=== PATIENT | female | born 1990 | race Caucasian/White ===

== ENCOUNTER 2016-05-17 13:49 | Emergency (ER) | payer MEDICAID ==
[2016-05-17] MEDS ORDERED: ACETAMINOPHEN 325 MG TABLET PO ONE (15:30)
--- NOTE | 2016-05-17 15:30 | ER Document Report ---
ED Medical Screen (RME) - General Chief Complaint: Cough Stated Complaint: ABDOMINAL PAIN Mode of Arrival: Ambulatory Information source: Patient Notes: Patient is complaining of left flank pain described as sharp worse with movement , standing, sitting, cough, sneeze or deep inspiration. This pain started yesterday. She endorses headache, dizziness, cough and nasal congestion that started 4 days ago. She is 33 weeks . Endorses normal movement, paul-farooq contractions, no loss of fluids or vaginal bleeding. She has tried tylenol which has not provided any relief. TRAVEL OUTSIDE OF THE [place] IN LAST 30 DAYS: No - Related Data Allergies/Adverse Reactions: No Known Allergies Allergy (Verified 05/17/16 14:08) Past Medical History - Past Medical History Cardiac Medical History: Reports: Hx Hypertension - during (last month of ) - Immunizations Hx Diphtheria, Pertussis, Tetanus Vaccination: No Review of Systems - Review of Systems Constitutional: See HPI EENT: See HPI Female Genitourinary: See HPI Physical Exam - Vital signs Vitals: Temp Pulse Resp BP Pulse Ox 97.8 F 107 H 18 126/79 H 97 05/17/16 14:05/17/16 14:05/17/16 14:05/17/16 14:05/17/16 14:09 - Notes Notes: General: ill-appearing but non-toxic. Tachycardic at 111 but otherwise VSS. Course - Re-evaluation Re-evalutation: 05/17/16 15:29 Patient seen and examined. Ordered urinalysis and rapid flu. - Vital Signs Vital signs: Temp Pulse Resp BP Pulse Ox 97.8 F 107 H 18 126/79 H 97 05/17/16 14:05/17/16 14:05/17/16 14:05/17/16 14:05/17/16 14:09
[2016-05-17 16:02] LABS: APPEARANCE,URINE SLIGHTLY-CLOUDY; BILIRUBIN,URINE NEGATIVE (NEGATIVE); GLUCOSE, URINE NEGATIVE (NEGATIVE); KETONES,URINE NEGATIVE (NEGATIVE); LEUKOCYTE ESTERASE,URINE TRACE (NEGATIVE); NITRITE,URINE NEGATIVE (NEGATIVE); PROTEIN,URINE NEGATIVE (NEGATIVE); URINE SPECIFIC GRAVITY 1.012; UROBILINOGEN,URINE NEGATIVE mg/dL (<2.0)
--- NOTE | 2016-05-17 19:27 | ER Document Report ---
ED General - General Chief Complaint: Cough Stated Complaint: ABDOMINAL PAIN Mode of Arrival: Ambulatory TRAVEL OUTSIDE OF THE [place] IN LAST 30 DAYS: No - HPI Patient complains to provider of: cough diffuse myalgias Notes: Patient coming in with sinus pressure non productive cough ongoing for the last 4 days. Patient also states she is having diffuse abdominal and back pain. States this is worse with moving around. Is also been ongoing for the last 4 days. Denies any fevers chills nausea vomiting. Patient is currently 33 weeks . States she's been taking Tylenol for her pain at home denies any recent antibiotics denies any sick contacts. Patient is nontoxic looking upon my evaluation. - Related Data Allergies/Adverse Reactions: No Known Allergies Allergy (Verified 05/17/16 14:08) Past Medical History - General Information source: Patient - Social History Smoking Status: Never Smoker Frequency of alcohol use: None Drug Abuse: None Family History: Reviewed & Not Pertinent Patient has suicidal ideation: No Patient has homicidal ideation: No - Past Medical History Cardiac Medical History: Reports: Hx Hypertension - during (last month of ) Surgical Hx: Negative - Immunizations Hx Diphtheria, Pertussis, Tetanus Vaccination: Yes Review of Systems - Review of Systems Constitutional: No symptoms reported EENT: No symptoms reported Cardiovascular: No symptoms reported Respiratory: Cough Gastrointestinal: Abdominal pain Genitourinary: No symptoms reported Female Genitourinary: No symptoms reported Musculoskeletal: Back pain Skin: No symptoms reported Hematologic/Lymphatic: No symptoms reported Neurological/Psychological: No symptoms reported -: Yes All other systems reviewed and negative Physical Exam - Vital signs Vitals: Temp Pulse Resp BP Pulse Ox 97.8 F 107 H 18 126/79 H 97 05/17/16 14:09 05/17/16 14:09 05/17/16 14:09 05/17/16 14:09 05/17/16 14:09 Interpretation: Normal - General General appearance: Appears well, Alert - HEENT Head: Normocephalic, Atraumatic Eyes: Normal Pupils: PERRL - Respiratory Respiratory status: No respiratory distress Chest status: Nontender Breath sounds: Normal Chest palpation: Normal - Cardiovascular Rhythm: Regular Heart sounds: Normal auscultation Murmur: No - Abdominal Inspection: Normal, Gravid female Distension: No distension Bowel sounds: Normal Tenderness: Nontender Organomegaly: No organomegaly - Back Back: Normal, Nontender - Extremities General upper extremity: Normal inspection, Nontender, Normal color, Normal ROM , Normal temperature General lower extremity: Normal inspection, Nontender, Normal color, Normal ROM , Normal temperature, Normal weight bearing. No: Ezio's sign - Neurological Neuro grossly intact: Yes Cognition: Normal Orientation: AAOx4 [place] Coma Scale Eye Opening: Spontaneous [place] Coma Scale Verbal: Oriented [place] Coma Scale Motor: Obeys Commands [place] Coma Scale Total: 15 Speech: Normal Motor strength normal: LUE, RUE, LLE, RLE Sensory: Normal - Psychological Associated symptoms: Normal affect, Normal mood - Skin Skin Temperature: Warm Skin Moisture: Dry Skin Color: Normal Course - Re-evaluation Re-evalutation: 05/18/16 02:40 Patient presents today with upper respiratory symptoms more likely this is viral. Examination heart tones laboratory studies showed no critical etiology. Patient was given albuterol inhaler to technician's helper with her cough encouraged patient to use Mucinex [id number] plenty water to stay hydrated. Offered the patient a wait and see prescription for Keflex for sinus symptoms. Splint to right this time is more likely viral she's not better in the next 3-4 days she can have the Keflex filled. Patient was patient of overt care discharged home - Vital Signs Vital signs: Temp Pulse Resp BP Pulse Ox 97.9 F 101 H 18 118/67 97 05/17/16 19:41 05/17/16 19:41 05/17/16 19:41 05/17/16 19:41 05/17/16 19:41 - Laboratory Laboratory results interpreted by me: 05/17/16 15:31 Ur Leukocyte Esterase TRACE H Urine Ascorbic Acid 20 H Discharge - Discharge Clinical Impression: Upper respiratory infection, viral Condition: Good Disposition: HOME, SELF-CARE Instructions: Upper Respiratory Illness ([facility]), Pelvic Pain in and Round Ligament Pain ([facility]) Additional Instructions: I will give you a prescription for Keflex. If your symptoms are continuing on this week please have the prescription filled for your URI. Use albuterol inhaler 2 puffs every 4 hours for shortness of breath or coughing. Follow up with your obgyn in 1 week. Prescriptions: Cephalexin Monohydrate [Keflex 500 mg Capsule] 500 mg PO QID #28 capsule Guaifenesin [Mucinex] 600 mg PO BID #30 tab.er.12h Metoclopramide HCl [Reglan] 5 mg PO Q6 #20 tablet Forms: Return to Work Referrals: HANNAH JAIN MD [Primary Care Provider] - Follow up as needed
[2016-05-17] MEDS ORDERED: ALBUTEROL SULFATE HFA (90 MCG/PUFF) 8 GM MDI (1 MDI/ER DISP) IH ONE (19:50)
[2016-05-17 19:51] VITALS: BP 118/67
== END 2016-05-17 19:57 | disposition home or self-care (01) ==
LOC: ER 13:49
DX: J06.9 Acute upper respiratory infection, unspecified (principal); R05 Cough; R10.9 Unspecified abdominal pain; Z3A.33 33 weeks gestation of pregnancy
CPT/HCPCS: 99283; 81001; 87804; J3490 ×2

== ENCOUNTER 2016-07-01 16:46 | Inpatient (IN) | payer MEDICAID ==
[2016-07-01 17:15] LABS: AMNISURE (ROM) POSITIVE (NEGATIVE)
[2016-07-01 17:20] LABS: APPEARANCE,URINE CLEAR; BILIRUBIN,URINE NEGATIVE (NEGATIVE); GLUCOSE, URINE NEGATIVE (NEGATIVE); KETONES,URINE NEGATIVE (NEGATIVE); LEUKOCYTE ESTERASE,URINE SMALL (NEGATIVE); NITRITE,URINE NEGATIVE (NEGATIVE); PROTEIN,URINE NEGATIVE (NEGATIVE); URINE SPECIFIC GRAVITY 1.005; UROBILINOGEN,URINE NEGATIVE mg/dL (<2.0)
[2016-07-01 17:36] LABS: URINE BARBITURATES SCREEN NEGATIVE; URINE METHADONE SCREEN NEGATIVE; URINE OPIATES LOW NEGATIVE; URINE PHENCYCLIDINE SCREEN NEGATIVE
[2016-07-01 17:44] LABS: ABSOLUTE EOSINOPHILS # (AUTO) 0.1 10^3/uL (0.0-0.6); ABSOLUTE LYMPHOCYTES (AUTO) 1.2 10^3/uL (0.5-4.7); ABSOLUTE MONOCYTES (AUTO) 0.9 10^3/uL (0.1-1.4); ABSOLUTE NEUT (AUTO) 8.3 10^3/uL (1.7-8.2); EOSINOPHILS % (AUTO) 0.7 % (0-6); HEMATOCRIT 30.9 % (36.0-47.0); HEMOGLOBIN 10.7 g/dL (12.0-15.5); HGB HCT DIFFERENCE 1.2; LYMPHOCYTES % (AUTO) 11.2 % (13-45); MEAN CORPUSCULAR HEMOGLOBIN 30.8 pg (27.0-33.4); MEAN CORPUSCULAR HGB CONC 34.6 g/dL (32.0-36.0); MEAN CORPUSCULAR VOLUME 89 fl (80-97); MONOCYTES % (AUTO) 8.6 % (3-13); RED BLOOD COUNT 3.48 10^6/uL (3.72-5.28); RED CELL DISTRIBUTION WIDTH 13.5 % (11.5-14.0); SEGMENTED NEUTROPHILS % (AUTO) 79.5 % (42-78); WHITE BLOOD COUNT 10.5 10^3/uL (4.0-10.5)
--- NOTE | 2016-07-01 18:00 | L&D Flow Sheet ---
LD Flowsheet Datetime Report Generated by CPN: 07/01/2016 18:00 Datetime: 07/01/2016 17:59 Maternal Assessment Level of Consciousness: Fully Conscious (Maryana Camp, RNC) DTR's/Clonus: DTRs 2+; No Clonus (Maryana Camp, RNC) Headache: Denies (Maryana Camp, RNC) Breath Sounds, Left: Clear and Equal (Maryana Camp, RNC) Breath Sounds, Right: Clear and Equal (Maryana Camp, RNC) Nausea/Vomiting: Denies (Maryana Camp, RNC) RUQ Epigastric Pain: Denies (Maryana Camp, RNC) Datetime: 07/01/2016 17:46 NBP Sys/Frieda/Mean (mmHg): 125 (QS system process) : 70 (QS system process) : 92 (QS system process) Pulse: 96 (QS system process) Communication LaborFlag: Labor (QS system process) Datetime: 07/01/2016 17:16 NBP Sys/Frieda/Mean (mmHg): 131 (QS system process) : 58 (QS system process) : 84 (QS system process) Pulse: 93 (QS system process) Communication LaborFlag: Labor (QS system process) Datetime: 07/01/2016 16:00 Vital Signs Stage of : Labor (Maryana Camp, RNC)
[2016-07-01] MEDS ORDERED: RINGERS SOLUTION,LACTATED 1,000 ML IV PRN (18:36)
[2016-07-01] MEDS ORDERED: RINGERS SOLUTION,LACTATED 1,000 ML IV ONE (18:36)
[2016-07-01] MEDS ORDERED: OXYTOCIN/NORMAL SALINE 20 UNIT/1,000 ML RTUINJ ONE (19:51)
--- NOTE | 2016-07-01 20:00 | L&D Flow Sheet ---
LD Flowsheet Datetime Report Generated by CPN: 07/01/2016 20:00 Datetime: 07/01/2016 19:45 Monitor Mode: External (Lisa Erlinda, RN) Frequency (min): x1 (Lisa Erlinda, RN) Quality: Mild (Lisa Erlinda, RN) Duration (sec): 90 (Lisa Erlinda, RN) Resting Tone (Palpate): Relaxed (Lisa Erlinda, RN) Monitor Mode: External US (Lisa Erlinda, RN) FHR Baseline Rate : 125 (Lisa Erilnda, RN) Variability: Moderate 6-25 bpm (Lisa Erlinda, RN) Accelerations: 15X15 (Lisa Erlinda, RN) Decelerations: None (Lisa Erlinda, RN) Communication: Provider Orders Received (Annotations: Dr Barrera on unit, orders received for pitocin administration per protocol ) (Lisa Coffey, RN) Datetime: 07/01/2016 19:43 I/O Interventions: Up to BR (Lisa Erlinda, RN) Datetime: 07/01/2016 19:31 NBP Sys/Frieda/Mean (mmHg): 128 (QS system process) : 71 (QS system process) : 94 (QS system process) Pulse: 81 (QS system process) LaborFlag: Labor (QS system process) Datetime: 07/01/2016 19:30 Monitor Mode: External (Lisa Erlinda, RN) Frequency (min): 5-6 (Lisa Erlinda, RN) Quality: Mild (Lisa Erlinda, RN) Duration (sec): 60-80 (Lisa Erlinda, RN) Resting Tone (Palpate): Relaxed (Lisa Erlinda, RN) Monitor Mode: External US (Lisamarquis Tariqsel, RN) FHR Baseline Rate : 135 (Lisa Erlinda, RN) Variability: Moderate 6-25 bpm (Lisa Erlinda, RN) Accelerations: 15X15 (Lisa Erlinda, RN) Decelerations: None (Lisa Erlinda, RN) Datetime: 07/01/2016 19:15 Monitor Mode: External; Palpation (Maryana Camp, RNC) Frequency (min): 5-7 (Maryana Camp, RNC) Quality: Mild (Maryana Camp, RNC) Duration (sec): 40-45 (Maryana Camp, RNC) Duration Criteria: Less than Two 120 Second Contractions (Maryana Camp, RNC) Pattern: Normal: <= 5 Contractions in 10 Minutes (Maryana Camp, RNC) Resting Tone (Palpate): Relaxed (Maryana Camp, RNC) Monitor Mode: External US; Auscultation (Maryana Camp, RNC) FHR Baseline Rate : 135 (Maryana Camp, RNC) FHR Baseline Changes: No Baseline Change (Maryana Camp, RNC) Variability: Moderate 6-25 bpm (Maryana Camp, RNC) Accelerations: Prolonged (Maryana Camp, RNC) Decelerations: None (Maryana Camp, RNC) Communication: Report Given to @ Marilyn Coffey RN (Maryana Camp, RNC) Communication Comments: Bedside report completed care relinquished (Maryana Camp, RNC) Datetime: 07/01/2016 19:00 NBP Sys/Frieda/Mean (mmHg): 123 (QS system process) : 75 (QS system process) : 94 (QS system process) Pulse: 88 (QS system process) Respirations: 16 (Maryana Camp, RNC) Monitor Mode: External; Palpation (Maryana Camp, RNC) Frequency (min): 4-8 (Maryana Camp, RNC) Quality: Mild (Maryana Camp, RNC) Duration (sec): 40-45 (Maryana Camp, RNC) Pattern: Normal: <= 5 Contractions in 10 Minutes (Maryana Camp, RNC) Resting Tone (Palpate): Relaxed (Maryana Camp, RNC) Monitor Mode: External US; Auscultation (Maryana Camp, RNC) FHR Baseline Rate : 120 (Maryana Camp, RNC) FHR Baseline Changes: No Baseline Change (Maryana Camp, RNC) Variability: Moderate 6-25 bpm (Maryana Camp, RNC) Accelerations: Prolonged (Maryana Camp, RNC) Decelerations: None (Maryana Camp, RNC) LaborFlag: Labor (QS system process) Datetime: 07/01/2016 18:42 Monitor Interventions for UA: Emmet Adjusted (Maryana Camp, RNC) Monitor Interventions for FHR: Ultrasound Adjusted (Maryana Camp, RNC) Comments: RN at bedside adjusting monitor (Maryana Camp, RNC) Datetime: 07/01/2016 18:30 Monitor Mode: External; Palpation (Maryana Camp, RNC) Frequency (min): irregular (Maryana Camp, RNC) Quality: Mild (Maryana Camp, RNC) Duration (sec): 40-50 (Maryana Camp, RNC) Pattern: Normal: <= 5 Contractions in 10 Minutes (Maryana Camp, RNC) Resting Tone (Palpate): Relaxed (Maryana Camp, RNC) Monitor Mode: External US; Auscultation (Maryana Camp, RNC) FHR Baseline Rate : 130 (Maryana Camp, RNC) FHR Baseline Changes: No Baseline Change (Maryana Camp, RNC) Variability: Moderate 6-25 bpm (Maryana Camp, RNC) Accelerations: 15X15 (Maryana Camp, RNC) Decelerations: None (Maryana Camp, RNC) Datetime: 07/01/2016 18:25 Patient Position/Activity: Semi-Fowlers (Maryana Camp, RNC) Patient Care Comments: EFM reapplied. (Maryana Camp, RNC) Datetime: 07/01/2016 18:20 I/O Interventions: Up to BR (Maryana Camp, RNC) Datetime: 07/01/2016 18:18 NBP Sys/Frieda/Mean (mmHg): 137 (QS system process) : 79 (QS system process) : 101 (QS system process) Pulse: 94 (QS system process) Respirations: 17 (Maryana Camp, RNC) LaborFlag: Labor (QS system process) Datetime: 07/01/2016 18:00 Monitor Mode: External; Palpation (Maryana Camp, RNC) Frequency (min): irregular (Maryana Camp, RNC) Quality: Mild (Maryana Camp, RNC) Duration (sec): 40-45 (Maryana Camp, RNC) Resting Tone (Palpate): Relaxed (Maryana Camp, RNC) Monitor Mode: External US; Auscultation (Maryana Camp, RNC) FHR Baseline Rate : 130 (Maryana Camp, RNC) FHR Baseline Changes: No Baseline Change (Maryana Camp, RNC) Variability: Minimal - Undetectable to <=5 bpm (Maryana Camp, RNC) Accelerations: Prolonged (Maryana Camp, RNC) Decelerations: None (Maryana Camp, RNC) Pain Scale: 0 (Maryana Camp, RNC) Pain Presence: None/Denies (Maryana Camp, RNC) Pain Type: N/A (Maryana Camp, RNC) LaborFlag: Labor (QS system process)
[2016-07-01] MEDS: OXYTOCIN/NORMAL SALINE 1,000 ML IV PRN (20:31)
--- NOTE | 2016-07-01 22:01 | L&D Flow Sheet ---
LD Flowsheet Datetime Report Generated by CPN: 07/01/2016 22:00 Datetime: 07/01/2016 21:34 NBP Sys/Frieda/Mean (mmHg): 141 (QS system process) : 65 (QS system process) : 94 (QS system process) Pulse: 96 (QS system process) Pitocin (milliunit): Pitocin Increased to (milliunits) @ 6 (Lisa Coffey, RN) LaborFlag: Labor (QS system process) Datetime: 07/01/2016 21:00 Pitocin (milliunit): Pitocin Increased to (milliunits) @ 4 (Lisa Erlinda, RN) Datetime: 07/01/2016 20:45 Monitor Mode: External (Lisa Erlinda, RN) Frequency (min): 4-5 (Lisa Erlinda, RN) Quality: Mild (Lisa Erlinda, RN) Duration (sec): 50-80 (Lisa Erlinda, RN) Resting Tone (Palpate): Relaxed (Lisa Erlinda, RN) Monitor Mode: External US (Lisa Erlinda, RN) FHR Baseline Rate : 135 (Lisa Erlinda, RN) Variability: Moderate 6-25 bpm (Lisa Erlinda, RN) Accelerations: 15X15 (Lisa Erlinda, RN) Decelerations: None (Lisa Erlinda, RN) Pitocin (milliunit): Pitocin Remains (milliunits) @ 2 (Lisa Erlinda, RN) Datetime: 07/01/2016 20:31 Pitocin (milliunit): Pitocin Started (milliunits) @ 2 (Lisa Erlinda, RN) Datetime: 07/01/2016 20:30 Monitor Mode: External (Lisa Erlinda, RN) Frequency (min): 4-10 (Lisa Erlinda, RN) Quality: Mild (Lisa Erlinda, RN) Duration (sec): 50-70 (Lisa Erlinda, RN) Resting Tone (Palpate): Relaxed (Lisa Erlinda, RN) Monitor Mode: External US (Lisa Erlinda, RN) FHR Baseline Rate : 135 (Lisa Erlinda, RN) Variability: Moderate 6-25 bpm (Lisa Erlinda, RN) Accelerations: 15X15 (Lisa Erlinda, RN) Decelerations: None (Lisa Erlinda, RN) Datetime: 07/01/2016 20:24 IV/Blood Work: IV Started (Lisa Erlinda, RN) Patient Care Comments: 18 g IV started L FA x1 attempt d/t pt hx of PPH. tolerated well. flushes without resistance, saline locked. (Lisa Coffey, LUCY) Datetime: 07/01/2016 20:07 I/O Interventions: Up to BR (Lisa Coffey, RN) Datetime: 07/01/2016 20:00 Monitor Mode: External (Lisa Coffey RN) Frequency (min): 5-8 (Lisa Coffey RN) Quality: Mild (Lisa Coffey RN) Duration (sec): 40-110 (Lisa Coffey RN) Resting Tone (Palpate): Relaxed (Lisa Coffey RN) Monitor Mode: External US (Lisa Coffey RN) FHR Baseline Rate : 135 (Lisa Coffey RN) Variability: Moderate 6-25 bpm (Lisa Coffey RN) Accelerations: 15X15 (Lisa Coffey RN) Decelerations: None (Lisa Coffey RN)
[2016-07-02] MEDS ORDERED: NALBUPHINE HCL INJ 10 MG/1 ML AMPULE INJ ONE (00:13)
[2016-07-02] MEDS ORDERED: PROMETHAZINE HCL INJ 25 MG/1 ML VIAL IV ONE (00:13)
[2016-07-02] MEDS ORDERED: PROMETHAZINE HCL INJ 25 MG/1 ML VIAL ONE (00:30)
[2016-07-02] MEDS ORDERED: NALBUPHINE HCL INJ 10 MG/1 ML AMPULE ONE (00:30)
[2016-07-02] MEDS ORDERED: FENTANYL/BUPIVACAINE/NS/PF 200 MCG/100 ML RTUINJ EPI ONE (03:36)
[2016-07-02] MEDS ORDERED: EPHEDRINE SULFATE INJ 50 MG/1 ML AMPULE ONE (03:36)
[2016-07-02] MEDS ORDERED: BUPIVACAINE HCL 0.25 % INJ/PF (2.5 MG/1 ML) 30 ML VIAL ONE (03:36)
[2016-07-02] MEDS ORDERED: OXYTOCIN/NORMAL SALINE 20 UNIT/1,000 ML RTUINJ ONE (04:29)
[2016-07-02] MEDS ORDERED: MISOPROSTOL 0.2 MG TABLET ONE (04:29)
[2016-07-02] MEDS ORDERED: LIDOCAINE 1% INJ-PF (10 MG/ML) 30 ML SDV ONE (04:29)
[2016-07-02] MEDS ORDERED: FENTANYL/BUPIVACAINE/NS/PF 100 ML EPI PRN (04:46)
[2016-07-02] MEDS ORDERED: BENZOIN/ALOE VERA/STORAX/TOLU TINCTURE 60 ML TP PRN (04:46)
[2016-07-02] MEDS ORDERED: BUPIVACAINE HCL 0.25 % INJ/PF (2.5 MG/1 ML) 30 ML VIAL INFIL ONE (04:46)
[2016-07-02] MEDS ORDERED: METHYLERGONOVINE MALEATE INJ/PF 0.2 MG/1 ML AMPULE ONE (05:19)
[2016-07-02] MEDS ORDERED: VASOPRESSIN INJ 20 UNIT/1 ML VIAL ONE (05:19)
[2016-07-02] MEDS ORDERED: OXYTOCIN 10 UNIT/ML VIAL ONE ×2 (05:19→06:01)
[2016-07-02] MEDS: OXYTOCIN/NORMAL SALINE 1,000 ML IV PRN (06:03)
--- NOTE | 2016-07-02 06:53 | Delivery Summary ---
Del Sum A-C Datetime Report Generated by CPN: 07/02/2016 06:52 ADMISSION DATA Chief Complaint: Suspected Ruptured Membranes Indication for Induction: Not Applicable Admission Impression: Term, Intrauterine ; No Active Labor; Ruptured Membranes DELIVERY PERSONNEL Delivery Doctor:: Sameer Barrera, DO Labor and Delivery Nurse:: Lisa Coffey, ripshear operator Nurse:: Sweta Jenkins, RN Olericulturist/HIGH PRESSURE BOILER OPERATOR: Griselda Semar, CORE WINDER MACHINE OPERATOR MATERNAL INFORMATION Delivery Anesthesia: Epidural Medications After Delivery: Pitocin Bolus-Please Comment Meds After Delivery Comment: pitocin 30 units/ 1000 mL NSS after delivery of placenta Estimated Blood Loss (ml): 300 Maternal Complications: None Provider Comments: of viable female in GOMEZ position Loose nuchal x1 easilt reduced Placenta delievered spontaneous and intact with 3v cord Fundus firm after 1000mcg of Cytotec LABOR SUMMARY EDC: 07/04/2016 00:00 No. Babies in Womb: 1 Attempted: No Labor Anesthesia: Epidural LABOR INFORMATION Reason for Induction: Not Applicable Onset of Labor: 07/02/2016 03:29 Complete Dilatation: 07/02/2016 04:40 Oxytocin: Induction Group B Beta Strep: NEGATIVE MEMBRANES Membranes Rupture Method: Spontaneous Rupture of Membranes: 07/01/2016 11:00 Length of Rupture (hr): 18.35 Amniotic Fluid Color: Clear Amniotic Fluid Amount: Moderate Amniotic Fluid Odor: Normal STAGES OF LABOR Stage 1 hr: 1 Stage 1 min: 11 Stage 2 hr: 0 Stage 2 min: 41 Stage 3 hr: 0 Stage 3 min: 5 Total Time in Labor hr: 1 Total Time in Labor min: 57 VAGINAL DELIVERY Episiotomy: None Laceration Extension: First Degree Laceration Type: Periurethral Laceration Repair: Yes Laceration Repair Note: repaired with 3-0 chromic in usual fashion with good hemostasis Sponge Count Correct: Yes Sharps Count Correct: Yes CSECTION DELIVERY Primary Indication: N/A Secondary Indication: N/A CSection Incidence: N/A Labor: N/A Elective: N/A CSection Incision: N/A BABY A INFORMATION Delivery Date/Time: 07/02/2016 05:21 Method of Delivery: Vaginal Born in Route : No : N/A Forceps: N/A Vacuum Extraction: N/A Shoulder Dystocia : No PRESENTATION/POSITION BABY A Presentation: Cephalic Cephalic Presentation: Vertex Vertex Position: Left Occipital Anterior Breech Presentation: N/A PLACENTA INFORMATION BABY A Placenta Delivery Time : 07/02/2016 05:26 Placenta Method of Delivery: Spontaneous Placenta Status: Delivered SCORES BABY A Heart Rate 1 min: >100 bpm Resp Effort 1 min: Good Cry Reflex Irritability 1 min: Cough or Sneeze or Pulls Away Muscle Tone 1 min: Active Motion Color 1 min: Blue/Pale Resuscitation Effort 1 min: Tactile Stimulation SCORE 1 MIN: 8 Heart Rate 5 min: >100 bpm Resp Effort 5 min: Good Cry Reflex Irritability 5 min: Cough or Sneeze or Pulls Away Muscle Tone 5 min: Active Motion Color 5 min: Body [place], Extremities Blue Resuscitation Effort 5 min: Tactile Stimulation SCORE 5 MIN: 9 INFANT INFORMATION BABY A Gestational Age at Delivery: 39.5 Gestational Status: Full Term- 39- 40.6 Weeks Infant Outcome : Liveborn Infant Condition : Stable Sex: Female IDENTIFICATION BABY A Verification Date/Time: 07/02/2016 05:39 ID Band Number: [id number] Mother's Name Verified: Yes RN Verifying : R Gregory, RNC Additional Verifying Personnel: K Fore, RN WEIGHT/LENGTH BABY A Birthweight (gm): 3975 Infant Weight (lb): 8 Weight (oz): 12 Length (in): 21.00 Length (cm): 53.34 CORD INFORMATION BABY A No. Cord Vessels: 3 Nuchal Cord : Around Neck x1, Loose Cord Blood Taken: Yes-For Storage (Mom's Blood type +) Infant Suction: Mouth; Nose ASSESSMENT BABY A Complications: None Physical Findings at Delivery: Other Physical Findings- Other: Face bruised Infant Respirations: Appears Normal Skin to Skin: Yes Skin to Skin Time (min): 60 Nailing Machine Operator Automatic/ALS Called : No Infant Care By: NAZ Landa Transferred To: [facility] SIGNATURES Signature: with User ID: [email or web address]
[2016-07-02] MEDS ORDERED: DIPH/PERTUSS(ACELL)/TETANUS VAC/PF 0.5 ML SYR (>=10YO) IM PRN (07:18)
[2016-07-02] MEDS ORDERED: BENZOCAINE/MENTHOL AEROSOL SPRAY 56 ML TOP PRN (07:18)
[2016-07-02] MEDS ORDERED: ACETAMINOPHEN WITH CODEINE #3 TABLET PO PRN ×2 (07:18)
[2016-07-02] MEDS ORDERED: MEASLES,MUMPS&RUBELLA VACC/PF 0.5 ML VIAL SUBCUT PRN (07:18)
[2016-07-02] MEDS ORDERED: ZOLPIDEM TARTRATE 5 MG TABLET PO PRN (07:18)
[2016-07-02] MEDS ORDERED: DIBUCAINE 1% OINTMENT 28 GM TP PRN (07:18)
--- NOTE | 2016-07-02 08:01 | L&D Flow Sheet ---
LD Flowsheet Datetime Report Generated by CPN: 07/02/2016 08:00 Datetime: 07/02/2016 07:35 Respirations: 17 (Aura Addison, RN) Pain Scale: 0 (Aura Addison, RN) Pain Presence: None/Denies (Aura Addison, RN) Pain Type: N/A (Aura Addison, RN) Datetime: 07/02/2016 06:45 NBP Sys/Frieda/Mean (mmHg): 142 (QS system process) : 80 (QS system process) : 105 (QS system process) Pulse: 76 (QS system process) Datetime: 07/02/2016 06:32 NBP Sys/Frieda/Mean (mmHg): 133 (QS system process) : 75 (QS system process) : 98 (QS system process) Pulse: 82 (QS system process) Datetime: 07/02/2016 05:30 NBP Sys/Frieda/Mean (mmHg): 110 (QS system process) : 57 (QS system process) : 76 (QS system process) Pulse: 102 (QS system process) Respirations: 17 (Lisa Erlinda, RN) Temperature (F): 98.8 (Lisa Coffey RN) Temperature (C): 37.1 (QS system process) Temperature Route: Oral (Lisa Erlinda, RN) Datetime: 07/02/2016 05:24 Stage of : Recovery (Lisa Erlinda, RN) Datetime: 07/02/2016 05:21 Monitor Mode: External (Lisa Erlinda, RN) Frequency (min): 1-3 (Lisa Erlinda, RN) Quality: Moderate to Strong (Lisa Erlinda, RN) Duration (sec): 50-70 (Lisa Erlinda, RN) Resting Tone (Palpate): Relaxed (Lisa Erlinda, RN) Monitor Mode: External US (Lisa Erlinda, RN) FHR Baseline Rate : 125 (Lisa Erlinda, RN) Variability: Moderate 6-25 bpm (Lisa Erlinda, RN) Accelerations: 15X15 (Lisa Erlinda, RN) Decelerations: None (Lisa Erlinda, RN) Pitocin (milliunit): Pitocin Remains (milliunits) @ 9 (Lisa Erlinda, RN) Datetime: 07/02/2016 05:15 Monitor Mode: External (Lisa Erlinda, RN) Frequency (min): 1-2 (Lisa Erlinda, RN) Quality: Moderate to Strong (Lisa Erlinda, RN) Duration (sec): 40-60 (Lisa Erlinda, RN) Resting Tone (Palpate): Relaxed (Lisa Erlinda, RN) Monitor Mode: External US (Lisa Erlinda, RN) FHR Baseline Rate : 125 (Lisa Erlinda, RN) Variability: Moderate 6-25 bpm (Lisa Erlinda, RN) Accelerations: 15X15 (Lisa Erlinda, RN) Decelerations: None (Lisa Erlinda, RN) Pitocin (milliunit): Pitocin Remains (milliunits) @ 9 (Lisa Erlinda, RN) Datetime: 07/02/2016 05:11 Comments: RN and provider at bedside continuously assessing FHR and ctx (Lisa Coffey RN) Pushing: Coached on Pushing; Urge to Push (Lisa Coffey, RN) Pushing Position: Pushing with Contractions; Pushing Lithotomy (Lisa Coffey, RN) Pushing Progress: Descent with Pushing; Perineal Bulging; Pushing Effectively with Contractions (Lisa Coffey, RN) Communication: Provider at Bedside (Lisa Coffey RN) Communication Comments: Dr Barrera at bedside (Lisa Coffey RN) Datetime: 07/02/2016 05:02 NBP Sys/Frieda/Mean (mmHg): 145 (QS system process) : 70 (QS system process) : 97 (QS system process) Pulse: 86 (QS system process) LaborFlag: Labor (QS system process) Datetime: 07/02/2016 05:00 Monitor Mode: Palpation (Lisa Coffey RN) Frequency (min): 2-4 (Lisa Coffey RN) Quality: Moderate to Strong (Lisa Coffey RN) Duration (sec): 60-80 (Lisa Coffey RN) Resting Tone (Palpate): Relaxed (Lisa Coffey RN) Monitor Mode: External US (Lisa Coffey RN) FHR Baseline Rate : 125 (Lisa Coffey RN) Variability: Moderate 6-25 bpm (Lisa Coffey RN) Accelerations: 15X15 (Lisa Erlinda, RN) Decelerations: None (Lisa Erlinda, RN) Pitocin (milliunit): Pitocin Remains (milliunits) @ 9 (Lisa Erlinda, RN) Pushing Position: Laboring Down (Lisa Erlinda, RN) Stage 2 Comments: laboring down d/t Dr Barrera unavailable (Lisa Erlinda, RN) Datetime: 07/02/2016 04:56 Pushing: Coached on Pushing; Urge to Push (Lisa Erlinda, RN) Communication Comments: Dr Barrera on unit, OK-ed pt pushing (Lisa Erlinda, RN) Datetime: 07/02/2016 04:54 I/O Interventions: Jasso Discontinued (Lisa Erlinda, RN) Datetime: 07/02/2016 04:46 NBP Sys/Frieda/Mean (mmHg): 139 (QS system process) : 74 (QS system process) : 98 (QS system process) Pulse: 98 (QS system process) LaborFlag: Labor (QS system process) Datetime: 07/02/2016 04:45 Monitor Mode: External (Lisa Erlinda, RN) Frequency (min): 2-4 (Lisa Erlinda, RN) Quality: Moderate to Strong (Lisa Erlinda, RN) Duration (sec): 30-60 (Lisa Erlinda, RN) Resting Tone (Palpate): Relaxed (Lisa Erlinda, RN) Monitor Mode: External US (Lisa Erlinda, RN) FHR Baseline Rate : 125 (Lsia Erlinda, RN) Variability: Moderate 6-25 bpm (Lisa Erlinda, RN) Accelerations: 15X15 (Lisa Erlinda, RN) Decelerations: None (Lisa Erlinda, RN) Pitocin (milliunit): Pitocin Remains (milliunits) @ 9 (Lisa Erlinda, RN) Datetime: 07/02/2016 04:44 Communication Comments: Dr Barrera on unit, will report to pt room as soon as he is able (Lisa Erlinda, RN) Datetime: 07/02/2016 04:40 Dilatation (cm): 10.0 (Lisa Erlinda, RN) Effacement (%): 100 (Lisa Erlinda, RN) Station: 1 (Lisa Erlinda, RN) Exam by: K Erlinda RN (Lisa Erlinda, RN) Pushing: Urge to Push (Lisa Erlinda, RN) Datetime: 07/02/2016 04:32 NBP Sys/Rfieda/Mean (mmHg): 134 (QS system process) : 87 (QS system process) : 105 (QS system process) Pulse: 91 (QS system process) LaborFlag: Labor (QS system process) Datetime: 07/02/2016 04:30 Monitor Mode: External (Lisa Erlinda, RN) Frequency (min): 2-3 (Lisa Erlinda, RN) Quality: Moderate to Strong (Lisa Erlinda, RN) Duration (sec): 50-70 (Lisa Erlinda, RN) Resting Tone (Palpate): Relaxed (Lisa Erlinda, RN) Monitor Mode: External US (Lisa Erlinda, RN) FHR Baseline Rate : 120 (Lisa Erlinda, RN) Variability: Moderate 6-25 bpm (Lisa Erlinda, RN) Accelerations: 15X15 (Lisa Erlinda, RN) Decelerations: None (Lisa Erlinda, RN) Pitocin (milliunit): Pitocin Remains (milliunits) @ 9 (Lisa Erlinda, RN) Datetime: 07/02/2016 04:23 Dilatation (cm): 7.0 (Lisa Coffey RN) Effacement (%): 100 (Lisa Coffey RN) Station: 0 (Lisa Coffey RN) Exam by: Marilyn Coffey RN (Lisa Coffey RN) Vaginal Exam Comments: Pt reporting urge to poop (Lisa Coffey RN) IV/Blood Work: New IV Bag Hung (Lisa Coffey RN) Datetime: 07/02/2016 04:16 NBP Sys/Frieda/Mean (mmHg): 132 (QS system process) : 79 (QS system process) : 101 (QS system process) Pulse: 90 (QS system process) LaborFlag: Labor (QS system process) Datetime: 07/02/2016 04:15 Monitor Mode: External (Lisa Coffey RN) Frequency (min): 2-3 (Lisa Erlinda, RN) Quality: Moderate to Strong (Lisa Erlinda, RN) Duration (sec): 40-70 (Lisa Erlinda, RN) Resting Tone (Palpate): Relaxed (Lisa Erlinda, RN) Monitor Mode: External US (Lisa Erlinda, RN) FHR Baseline Rate : 125 (Lisa Erlinda, RN) Variability: Moderate 6-25 bpm (Lisa Erlinda, RN) Accelerations: None (Lisa Erlinda, RN) Decelerations: None (Lisa Erlinda, RN) Pitocin (milliunit): Pitocin Remains (milliunits) @ 9 (Lisa Erlinda, RN) Datetime: 07/02/2016 04:00 Monitor Mode: External (Lsia Erlinda, RN) Frequency (min): 2-5 (Lisa Erlinda, RN) Quality: Moderate to Strong (Lisa Erlinda, RN) Duration (sec): 50-70 (Lisa Erlinda, RN) Resting Tone (Palpate): Relaxed (Lisa Erlinda, RN) Monitor Mode: External US (Lisa Erlinda, RN) FHR Baseline Rate : 130 (Lisa Erlinda, RN) Variability: Moderate 6-25 bpm (Lisa Erlinda, RN) Accelerations: 10X10 (Lisa Erlinda, RN) Decelerations: None (Lisa Erlinda, RN) Pitocin (milliunit): Pitocin Remains (milliunits) @ 9 (Lisa Erlinda, RN) Datetime: 07/02/2016 03:59 NBP Sys/Frieda/Mean (mmHg): 116 (QS system process) : 66 (QS system process) : 83 (QS system process) Respirations: 16 (Lisa Erlinda, RN) Temperature (F): 98.1 (Lisa Erlinda, RN) Temperature (C): 36.7 (QS system process) Pain Scale: 1 (Lisa Erlinda, RN) Pain Presence: Intermittent (Lisa Erlinda, RN) Pain Type: Contraction (Lisa Erlinda, RN) Pain Location: Abdomen (Lisa Erlinda, RN) LaborFlag: Labor (QS system process) Datetime: 07/02/2016 03:58 NBP Sys/Frieda/Mean (mmHg): 118 (QS system process) NBP Sys/Frieda/Mean (mmHg): 122 (QS system process) : 66 (QS system process) : 63 (QS system process) : 87 (QS system process) Pulse: 88 (QS system process) LaborFlag: Labor (QS system process) Datetime: 07/02/2016 03:57 I/O Interventions: Jasso Cath Inserted (Lisa Erlinda, RN) Datetime: 07/02/2016 03:56 NBP Sys/Frieda/Mean (mmHg): 114 (QS system process) : 65 (QS system process) : 83 (QS system process) Pulse: 84 (QS system process) LaborFlag: Labor (QS system process) Datetime: 07/02/2016 03:55 NBP Sys/Frieda/Mean (mmHg): 128 (QS system process) : 59 (QS system process) : 85 (QS system process) Pulse: 90 (QS system process) LaborFlag: Labor (QS system process) Datetime: 07/02/2016 03:54 NBP Sys/Frieda/Mean (mmHg): 126 (QS system process) : 79 (QS system process) : 94 (QS system process) Pulse: 87 (QS system process) LaborFlag: Labor (QS system process) Datetime: 07/02/2016 03:53 NBP Sys/Frieda/Mean (mmHg): 123 (QS system process) : 69 (QS system process) : 91 (QS system process) Pulse: 84 (QS system process) LaborFlag: Labor (QS system process) Datetime: 07/02/2016 03:52 NBP Sys/Frieda/Mean (mmHg): 126 (QS system process) : 72 (QS system process) : 92 (QS system process) Pulse: 96 (QS system process) Patient Position/Activity: Supine (Lisa Erlinda, RN) Epidural Procedure Other: Pump Started (Lisa Erlinda, RN) LaborFlag: Labor (QS system process) Datetime: 07/02/2016 03:50 Epidural Procedure: Cath Placed (Lisa Erlinda, RN) Datetime: 07/02/2016 03:49 NBP Sys/Frieda/Mean (mmHg): 134 (QS system process) : 96 (QS system process) : 111 (QS system process) Pulse: 89 (QS system process) LaborFlag: Labor (QS system process) Datetime: 07/02/2016 03:48 Epidural Procedure: Test Dose (Lisa Erlinda, RN) Datetime: 07/02/2016 03:45 Procedures: Consents Signed (Lisa Erlinda, RN) Datetime: 07/02/2016 03:44 Monitor Mode: Palpation (Lisa Erlinda, RN) Frequency (min): 1-2 (Lisa Erlinda, RN) Quality: Moderate to Strong (Lisa Erlinda, RN) Resting Tone (Palpate): Relaxed (Lisa Erlinda, RN) Contraction Comments: Unable to accurately assess ctx by tocometer (Lisa Coffey RN) FHR Baseline Changes: Unable to Determine (Lisa Coffey RN) Comments: UTD FHT d/t tracing maternal HR and maternal position (Lisa Coffey RN) Pitocin (milliunit): Pitocin Remains (milliunits) @ 9 (Lisa Coffey RN) Datetime: 07/02/2016 03:40 Procedure Verify: Correct Patient Identity; Correct Side and Site are Marked; Accurate Procedure Consent Form; Agreement on Procedure to be Done; Correct Patient Position; Relevant Images and Results are Properly Labeled and Displayed; Addressed Need to Administer Antibiotics or Fluids for Irrigation; Safety Precautions Based on Patient History or Medication Use (Lisa Coffey RN) Anesthesia Plans: Local (Lisa Coffey RN) Epidural Positioning: Sitting (Lisa Coffey RN) Anesthesia Comments: Dr Mcneil at bedside for epidural procedure (Lisa Coffey RN) Datetime: 07/02/2016 03:37 Monitor Interventions for FHR: Ultrasound Adjusted (Lisa Coffey RN) Comments: maternal pulse 96 bpm (Lisa Coffey RN) Pitocin (milliunit): Pitocin Decreased to (milliunits) @ 9 (Lisa Coffey RN) Medication Comments: pitocin decreased for epidural procedure (Lisa Coffey RN) Datetime: 07/02/2016 03:32 IV/Blood Work: New IV Bag Hung (Lisa Coffey RN) Datetime: 07/02/2016 03:30 Monitor Mode: External (Lisa Coffey RN) Frequency (min): 2-4 (Lisa Coffey RN) Quality: Moderate to Strong (Lisa Coffey RN) Duration (sec): 40-60 (Lisa Coffey RN) Resting Tone (Palpate): Relaxed (Lisa Coffey RN) Monitor Mode: External US (Lisa Coffey RN) FHR Baseline Rate : 125 (Lisa Coffey RN) Variability: Minimal - Undetectable to <=5 bpm (Lisa Coffey RN) Accelerations: 15X15 (Lisa Coffey RN) Decelerations: None (Lisa Coffey RN) Pitocin (milliunit): Pitocin Remains (milliunits) @ 18 (Lisa Coffey RN) Datetime: 07/02/2016 03:29 Pain Presence: Intermittent (Lisa Coffey RN) Pain Type: Contraction (Lisa Coffey RN) Pain Location: Abdomen (Lisa Coffey RN) Pain Coping: Declines Medication or Epidural; Crying (Lisa Coffey RN) Dilatation (cm): 5.0 (Lisa Coffey RN) Effacement (%): 90 (Lisa Coffey RN) Station: -1 (Lisa Coffey RN) Exam by: Marilyn Coffey RN (Lisa Coffey RN) Procedure Verify: Correct Patient Identity; Correct Side and Site are Marked; Accurate Procedure Consent Form; Agreement on Procedure to be Done; Relevant Images and Results are Properly Labeled and Displayed; Addressed Need to Administer Antibiotics or Fluids for Irrigation; Safety Precautions Based on Patient History or Medication Use (Lisa Coffey RN) Anesthesia Plans: Epidural (Lisa Coffey RN) LaborFlag: Labor (QS system process) Datetime: 07/02/2016 03:15 Monitor Mode: External (Lisa Erlinda, RN) Frequency (min): 1.5-2 (Lisa Erlinda, RN) Quality: Moderate (Lisa Erlinda, RN) Duration (sec): 50-60 (Lisa Erlinda, RN) Resting Tone (Palpate): Relaxed (Lisa Erlinda, RN) Monitor Mode: External US (Lisa Erlinda, RN) FHR Baseline Rate : 125 (Lisa Erlinda, RN) Variability: Moderate 6-25 bpm (Lisa Erlinda, RN) Accelerations: 15X15 (Lisa Erlinda, RN) Decelerations: None (Lisa Erlinda, RN) Pitocin (milliunit): Pitocin Remains (milliunits) @ 18 (Lisa Erlinda, RN) Datetime: 07/02/2016 03:13 I/O Interventions: Up to BR (Lisa Erlinda, RN) Datetime: 07/02/2016 03:01 Monitor Interventions for FHR: Ultrasound Adjusted (Lisa Erlinda, RN) Datetime: 07/02/2016 03:00 Monitor Mode: External (Lisa Erlinda, RN) Frequency (min): 1-3 (Lisa Erlinda, RN) Quality: Moderate (Lisa Erlinda, RN) Duration (sec): 40-60 (Lisa Erlinda, RN) Resting Tone (Palpate): Relaxed (Lisa Erlinda, RN) Monitor Mode: External US (Lisa Erlinda, RN) FHR Baseline Rate : 130 (Lisa Erlinda, RN) Variability: Moderate 6-25 bpm (Lisa Erlinda, RN) Accelerations: None (Lisa Erlinda, RN) Decelerations: None (Lisa Erlinda, RN) Pitocin (milliunit): Pitocin Increased to (milliunits) @ 18 (Lisa Erlinda, RN) Datetime: 07/02/2016 02:45 Monitor Mode: External (Lisa Erlinda, RN) Frequency (min): 1-4 (Lisa Erlinda, RN) Quality: Moderate (Lisa Erlinda, RN) Duration (sec): 60-90 (Lisa Erlinda, RN) Resting Tone (Palpate): Relaxed (Lisa Erlinda, RN) Monitor Mode: External US (Lisa Erlinda, RN) FHR Baseline Rate : 130 (Lisa Erlinda, RN) Variability: Moderate 6-25 bpm (Lisa Erlinda, RN) Accelerations: 10X10 (Lisa Erlinda, RN) Decelerations: None (Lisa Erlinda, RN) Pitocin (milliunit): Pitocin Remains (milliunits) @ 16 (Lisa Erlinda, RN) Datetime: 07/02/2016 02:36 Pitocin (milliunit): Pitocin Increased to (milliunits) @ 16 (Lisa Erlinda, RN) Datetime: 07/02/2016 02:30 Monitor Mode: External (Lisa Erlinda, RN) Frequency (min): 2-3 (Lisa Erlinda, RN) Quality: Mild/Moderate (Lisa Erlinda, RN) Duration (sec): 40-90 (Lisa Erlinda, RN) Resting Tone (Palpate): Relaxed (Lisa Erlinda, RN) Monitor Mode: External US (Lisa Erlinda, RN) FHR Baseline Rate : 125 (Lisa Erlinda, RN) Variability: Moderate 6-25 bpm (Lisa Erlinda, RN) Accelerations: None (Lisa Erlinda, RN) Decelerations: None (Lisa Erlinda, RN) Pitocin (milliunit): Pitocin Remains (milliunits) @ 14 (Lisa Erlinda, RN) Datetime: 07/02/2016 02:15 Monitor Mode: External (Lisa Erlinda, RN) Frequency (min): 1.5-3 (Lisa Erlinda, RN) Quality: Mild/Moderate (Lisa Erlinda, RN) Duration (sec): 60-70 (Lisa Erlinda, RN) Resting Tone (Palpate): Relaxed (Lisa Erlinda, RN) Monitor Mode: External US (Lisa Erlinda, RN) Monitor Interventions for FHR: Ultrasound Adjusted (Lisa Erlinda, RN) FHR Baseline Rate : 125 (Lisa Erlinda, RN) Variability: Moderate 6-25 bpm (Lisa Erlinda, RN) Accelerations: None (Lisa Erlinda, RN) Decelerations: None (Lisa Erlinda, RN) Pitocin (milliunit): Pitocin Remains (milliunits) @ 14 (Lisa Erlinda, RN) Datetime: 07/02/2016 02:00 Monitor Mode: External (Lisa Erlinda, RN) Frequency (min): 2-4 (Lisa Erlinda, RN) Quality: Mild/Moderate (Lisa Erlinda, RN) Duration (sec): 50-70 (Lisa Erlinda, RN) Resting Tone (Palpate): Relaxed (Lisa Erlinda, RN) Monitor Mode: External US (Lisa Erlinda, RN) FHR Baseline Rate : 125 (Lisa Erlinda, RN) Variability: Moderate 6-25 bpm (Lisa Erlinda, RN) Accelerations: None (Lisa Erlinda, RN) Decelerations: None (Lisa Erlinda, RN) Pitocin (milliunit): Pitocin Remains (milliunits) @ 14 (Lisa Erlinda, RN) Datetime: 07/02/2016 01:50 I/O Interventions: Up to BR (Lisa Erlinda, RN) Datetime: 07/02/2016 01:45 Monitor Mode: External (Lisa Erlinda, RN) Frequency (min): 2-4 (Lisa Erlinda, RN) Quality: Mild/Moderate (Lisa Erlinda, RN) Duration (sec): 60-70 (Lisa Erlinda, RN) Resting Tone (Palpate): Relaxed (Lisa Erlinda, RN) Monitor Mode: External US (Lisa Erlinda, RN) FHR Baseline Rate : 125 (Lisa Erlinda, RN) Variability: Moderate 6-25 bpm (Lisa Erlinda, RN) Accelerations: None (Lisa Erlinda, RN) Decelerations: None (Lisa Erlinda, RN) Pitocin (milliunit): Pitocin Remains (milliunits) @ 14 (Lisa Erlinda, RN) Datetime: 07/02/2016 01:43 Pain Assessment Comments: pt sleeping (Lisa Erlinda, RN) Pitocin (milliunit): Pitocin Increased to (milliunits) @ 14 (Lisa Erlinda, RN) LaborFlag: Labor (QS system process) Datetime: 07/02/2016 01:30 Monitor Mode: External (Lisa Erlinda, RN) Frequency (min): 2-4 (Lisa Erlinda, RN) Quality: Mild/Moderate (Lisa Erlinda, RN) Duration (sec): 60-80 (Lisa Erlinda, RN) Resting Tone (Palpate): Relaxed (Lisa Erlinda, RN) Monitor Mode: External US (Lisa Erlinda, RN) FHR Baseline Rate : 130 (Lisa Erlinda, RN) Variability: Moderate 6-25 bpm (Lisa Erlinda, RN) Accelerations: None (Lisa Erlinda, RN) Decelerations: None (Lisa Erlinda, RN) Pitocin (milliunit): Pitocin Remains (milliunits) @ 12 (Lisa Erlinda, RN) Datetime: 07/02/2016 01:15 Monitor Mode: External (Lisa Erlinda, RN) Frequency (min): 3-5 (Lisa Erlinda, RN) Quality: Mild/Moderate (Lisa Erlinda, RN) Duration (sec): 70 (Lisa Erlinda, RN) Resting Tone (Palpate): Relaxed (Lisa Erlinda, RN) Monitor Mode: External US (Lisa Erlinda, RN) FHR Baseline Rate : 130 (Lisa Erlinda, RN) Variability: Moderate 6-25 bpm (Lisa Erlinda, RN) Accelerations: None (Lisa Erlinda, RN) Decelerations: None (Lisa Erlinda, RN) Pitocin (milliunit): Pitocin Remains (milliunits) @ 12 (Lisa Erlinda, RN) Datetime: 07/02/2016 01:00 Monitor Mode: External (Lisa Erlinda, RN) Frequency (min): 2-5 (Lisa Erlinda, RN) Quality: Mild/Moderate (Lisa Erlinda, RN) Duration (sec): 40-70 (Lisa Erlinda, RN) Resting Tone (Palpate): Relaxed (Lisa Erlinda, RN) Monitor Mode: External US (Lisa Erlinda, RN) FHR Baseline Rate : 130 (Lisa Relinda, RN) Variability: Moderate 6-25 bpm (Lisa Erlinda, RN) Accelerations: None (Lisa Erlinda, RN) Decelerations: None (Lisa Erlinda, RN) Pitocin (milliunit): Pitocin Remains (milliunits) @ 12 (Lisa Erlinda, RN) Datetime: 07/02/2016 00:59 Pitocin (milliunit): Pitocin Increased to (milliunits) @ 12 (Lisa Erlinda, RN) Datetime: 07/02/2016 00:47 Pain Assessment Comments: hot pack to back. pt reports pain relief after medication administration (Lisa Coffey RN) Comfort Measures: Hot/Cold Pack (Lisa Coffey RN) LaborFlag: Labor (QS system process) Datetime: 07/02/2016 00:45 Monitor Mode: External (Lisa Erlinda, RN) Frequency (min): 1-3 (Lisa Erlinda, RN) Quality: Mild/Moderate (Lisa Erlinda, RN) Duration (sec): 60-100 (Lisa Erlinda, RN) Resting Tone (Palpate): Relaxed (Lisa Erlinda, RN) Monitor Mode: External US (Lisa Erlinda, RN) FHR Baseline Rate : 130 (Lisa Erlinda, RN) Variability: Moderate 6-25 bpm (Lisa Erlinda, RN) Accelerations: 15X15 (Lisa Erlinda, RN) Decelerations: None (Lisa Erlinda, RN) Pitocin (milliunit): Pitocin Remains (milliunits) @ 10 (Lisa Erlinda, RN) Datetime: 07/02/2016 00:35 Medication Comments: nubain 10 mg IV and phenergan 12.5 mg IV (Lisa Erlinda, RN) Datetime: 07/02/2016 00:31 Monitor Mode: External (Lisa Erlinda, RN) Frequency (min): 2-5 (Lisa Erlinda, RN) Quality: Mild/Moderate (Lisa Erlinda, RN) Duration (sec): 80 (Lisa Erlinda, RN) Resting Tone (Palpate): Relaxed (Lisa Erlinda, RN) Monitor Mode: External US (Lisa Erlinda, RN) FHR Baseline Rate : 120 (Lisa Erlinda, RN) Variability: Moderate 6-25 bpm (Lisa Erlinda, RN) Accelerations: 15X15 (Lisa Erlinda, RN) Decelerations: None (Lisa Erlinda, RN) Datetime: 07/02/2016 00:30 Pitocin (milliunit): Pitocin Remains (milliunits) @ (Annotations: 10) (Lisa Erlinda, RN) Datetime: 07/02/2016 00:21 Patient Care Comments: pt leaning forward to relieve back pain. U/s adjusted and FHR located (Lisa Erlinda, RN) Communication: RN at Bedside (Lisa Erlinda, RN) Datetime: 07/02/2016 00:15 Monitor Mode: External (Lisa Erlinda, RN) Frequency (min): 3-7 (Lisa Erlinda, RN) Quality: Mild/Moderate (Lisa Erlinda, RN) Duration (sec): 60-70 (Lisa Erlinda, RN) Resting Tone (Palpate): Relaxed (Lisa Erlinda, RN) Monitor Mode: External US (Lisa Erlinda, RN) FHR Baseline Rate : 125 (Lisa Erlinda, RN) Variability: Moderate 6-25 bpm (Lisa Erlinda, RN) Accelerations: 15X15 (Lisa Erlinda, RN) Decelerations: None (Lisa Erlinda, RN) Pitocin (milliunit): Pitocin Remains (milliunits) @ (Annotations: 10) (Lisa Erlinda, RN) Datetime: 07/02/2016 00:13 Communication: Provider Orders Received; Call/Page Placed to Provider (Lisa Coffey RN) Communication Comments: Call to Dr Barrera, orders for nubain 10 mg IV and phenergan 12.5 mg IV (Lisa Coffey RN) Datetime: 07/02/2016 00:12 Dilatation (cm): 4.0 (Lisa Coffey RN) Effacement (%): 70 (Lisa Coffey RN) Station: -1 (Lisa Coffey RN) Exam by: Marilyn Coffey RN (Lisa Coffey RN) Vaginal Bleeding: None (Lisa Coffey RN) Cervix, Consistency: Moderate (Lisa Coffey RN) Cervix, Position: Anterior (Lsia Coffey RN) Pitocin (milliunit): Pitocin Increased to (milliunits) @ 10 (Lisa Cfofey RN) Datetime: 07/02/2016 00:10 Pain Presence: Constant (Lisa Coffey RN) Pain Type: Burning (Lisa Coffey RN) Pain Location: Back (Lisa Coffey RN) Pain Coping: Talking Through Contractions; Breathing Through Contractions; Requesting Pain Medication or Epidural (Lisa Coffey RN) Pain Assessment Comments: Pt reporting back pain (Lisa Coffey RN) Communication: RN at Bedside (Lisa Coffey RN) LaborFlag: Labor (QS system process) Datetime: 07/02/2016 00:00 Monitor Mode: External (Lisa Erlinda, RN) Frequency (min): 3-7 (Lisa Erlinda, RN) Quality: Mild/Moderate (Lisa Erlinda, RN) Duration (sec): 50-120 (Lisa Erlinda, RN) Resting Tone (Palpate): Relaxed (Lisa Erlinda, RN) Monitor Mode: External US (Lisa Erlinda, RN) FHR Baseline Rate : 125 (Lisa Erlinda, RN) Variability: Moderate 6-25 bpm (Lisa Erlinda, RN) Accelerations: 15X15 (Lisa Erlinda, RN) Decelerations: None (Lisa Erlinda, RN) Pitocin (milliunit): Pitocin Remains (milliunits) @ (Annotations: 8) (Lisa Erlinda, RN) Datetime: 07/01/2016 23:45 Monitor Mode: External (Lisa Erlinda, RN) Frequency (min): 2-4 (Lisa Erlinda, RN) Quality: Mild/Moderate (Lisa Erlinda, RN) Duration (sec): 70-90 (Lisa Erlinda, RN) Resting Tone (Palpate): Relaxed (Lisa Erlinda, RN) Monitor Mode: External US (Lisa Erlinda, RN) FHR Baseline Rate : 125 (Lisa Erlinda, RN) Variability: Moderate 6-25 bpm (Lisa Erlinda, RN) Accelerations: 10X10 (Lisa Erlinda, RN) Decelerations: None (Lisa Erlinda, RN) Pitocin (milliunit): Pitocin Remains (milliunits) @ (Annotations: 8) (Lisa Erlinda, RN) Datetime: 07/01/2016 23:30 Monitor Mode: External (Lisa Erlinda, RN) Frequency (min): 2-3.5 (Lisa Erlinda, RN) Quality: Mild/Moderate (Lisa Erlinda, RN) Duration (sec): 40-60 (Lisa Erlinda, RN) Resting Tone (Palpate): Relaxed (Lisa Erlinda, RN) Monitor Mode: External US (Lisa Erlinda, RN) FHR Baseline Rate : 125 (Lisa Erlinda, RN) Variability: Moderate 6-25 bpm (Lisa Erlinda, RN) Accelerations: 15X15 (Lisa Elrinda, RN) Decelerations: None (Lisa Erlinda, RN) Pitocin (milliunit): Pitocin Remains (milliunits) @ (Annotations: 8) (Lisa Erlinda, RN) Datetime: 07/01/2016 23:22 I/O Interventions: Up to BR (Lisa Erlinda, RN) Datetime: 07/01/2016 23:15 Monitor Mode: External (Lisa Erlinda, RN) Frequency (min): 3-5 (Lisa Erlinda, RN) Quality: Mild/Moderate (Lisa Erlinda, RN) Duration (sec): 60-80 (Lisa Erlinda, RN) Resting Tone (Palpate): Relaxed (Lisa Erlinda, RN) Monitor Mode: External US (Lisa Erlinda, RN) FHR Baseline Rate : 125 (Lisa Erlinda, RN) Variability: Moderate 6-25 bpm (Lisa Erlinda, RN) Accelerations: 15X15 (Lisa Erlinda, RN) Decelerations: None (Lisa Erlinda, RN) Pitocin (milliunit): Pitocin Remains (milliunits) @ (Annotations: 8) (Lisa Erlinda, RN) Datetime: 07/01/2016 23:04 Monitor Interventions for FHR: Ultrasound Adjusted (Lisa Coffey RN) Comments: Maternal HR ausculated (Lisa Coffey RN) Patient Care Comments: pt sitting at bedside on stool (Lisa Coffey RN) Communication: RN at Bedside (Lisa Coffey RN) Datetime: 07/01/2016 23:00 Monitor Mode: External (Lisa Erlinda, RN) Frequency (min): 1.5-3 (Lisa Erlinda, RN) Quality: Mild/Moderate (Lisa Erlinda, RN) Duration (sec): 60-80 (Lisa Erlinda, RN) Resting Tone (Palpate): Relaxed (Lisa Erlinda, RN) Monitor Mode: External US (Lisa Erlinda, RN) FHR Baseline Rate : 135 (Lisa Erlinda, RN) Variability: Moderate 6-25 bpm (Lisa Erlinda, RN) Accelerations: 15X15 (Lisa Erlinda, RN) Decelerations: None (Lisa Erlinda, RN) Pitocin (milliunit): Pitocin Remains (milliunits) @ (Annotations: 8) (Lisa Erlinda, RN) Datetime: 07/01/2016 22:58 I/O Interventions: Up to BR (Lisa Erlinda, RN) Datetime: 07/01/2016 22:45 Monitor Mode: External (Lisa Erlinda, RN) Frequency (min): 3-4 (Lisa Erlinda, RN) Quality: Mild/Moderate (Lisa Erlinda, RN) Duration (sec): 50-90 (Lisa Erlinda, RN) Resting Tone (Palpate): Relaxed (Lisa Erlinda, RN) Monitor Mode: External US (Lisa Erlinda, RN) FHR Baseline Rate : 135 (Lisa Erlinda, RN) Variability: Moderate 6-25 bpm (Lisa Erlinda, RN) Accelerations: 15X15 (Lisa Erlinda, RN) Decelerations: None (Lisa Erlinda, RN) Pitocin (milliunit): Pitocin Remains (milliunits) @ (Annotations: 8) (Lisa Erlinda, RN) Datetime: 07/01/2016 22:38 Monitor Interventions for UA: [place] Adjusted (Lisa Erlinda, RN) Quality: Mild/Moderate (Lisa Erlinda, RN) Pitocin (milliunit): Pitocin Increased to (milliunits) @ 8 (Lisa Erlinda, RN) Datetime: 07/01/2016 22:30 Monitor Mode: External (Lisa Erlinda, RN) Frequency (min): 1.5-3 (Lisa Erlinda, RN) Quality: Mild (Lisa Erlinda, RN) Duration (sec): 50-80 (Lisa Erlinda, RN) Resting Tone (Palpate): Relaxed (Lisa Erlinda, RN) Monitor Mode: External US (Lisa Erlinda, RN) FHR Baseline Rate : 135 (Lisa Erlinda, RN) Variability: Moderate 6-25 bpm (Lisa Erlinda, RN) Accelerations: 15X15 (Lisa Erlinda, RN) Decelerations: None (Lisa Erlinda, RN) Pitocin (milliunit): Pitocin Remains (milliunits) @ (Annotations: 6) (Lisa Erlinda, RN) Datetime: 07/01/2016 22:15 Monitor Mode: External (Lisa Erlinda, RN) Frequency (min): 2-5 (Lisa Erlinda, RN) Quality: Mild (Lisa Erlinda, RN) Duration (sec): 50-70 (Lisa Erlinda, RN) Resting Tone (Palpate): Relaxed (Lisa Erlinda, RN) Monitor Mode: External US (Lisa Erlinda, RN) FHR Baseline Rate : 135 (Lisa Erlinda, RN) Variability: Moderate 6-25 bpm (Lisa Erlinda, RN) Accelerations: 15X15 (Lisa Erlinda, RN) Decelerations: None (Lisa Erlinda, RN) Pitocin (milliunit): Pitocin Remains (milliunits) @ (Annotations: 6) (Lisa Erlinda, RN) Datetime: 07/01/2016 22:00 Monitor Mode: External (Lisa Erlinda, RN) Frequency (min): 2-5 (Lisa Erlinda, RN) Quality: Mild (Lisa Erlinda, RN) Duration (sec): 50-60 (Lisa Erlinda, RN) Resting Tone (Palpate): Relaxed (Lisa Erlinda, RN) Monitor Mode: External US (Lisa Erlinda, RN) FHR Baseline Rate : 135 (Lisa Erlinda, RN) Variability: Moderate 6-25 bpm (Lisa Erlinda, RN) Accelerations: 15X15 (Lisa Erlinda, RN) Decelerations: None (Lisa Erlinda, RN) Pitocin (milliunit): Pitocin Remains (milliunits) @ (Annotations: 6) (Lisa Erlinda, RN)
--- NOTE | 2016-07-02 08:48 | Admission Physical ---
Datetime Report Generated by CPN: 07/02/2016 08:48 CURRENT ADMISSION Chief Complaint: Suspected Ruptured Membranes Indication for Induction: Not Applicable Admit Plan: Admit to Unit; Initiate Labor Induction Protocol ALLERGIES Medication Allergies: No Medication Allergies: No Known Allergies (07/01/2016) Latex: No Latex Allergies OBSTETRICAL HISTORY EDC: 07/04/2016 00:00 : 2 Para: 1 Term: 1 : 0 SAB: 0 IAB: 0 Ectopic: 0 Livin Cesareans: 0 VBACs: 0 Multiple Births: 0 Gestational Diabetes: No Rh Sensitization: No Incompetent Cervix: No HAROLDO: No Infertility: No ART Treatment: No Uterine Anomaly: No IUGR: No Hx Previous C/S: No Macrosomia: No Hx Loss/Stillborn: No PIH: No Hx : No Placenta Previa/Abruption: No Depression/PP Depression: No PTL/PROM: No Post Hemorrhage: Yes Current Procedures: Ultrasound Obstetrical History Comments: 2011 40.6 female; PP hemorrhage with first received two units of blood G2-denies complications with this SEE RECORDS Alcohol: No Marijuana : No Cocaine: No Other Illicit Drugs: No Cigarettes: Never Smoker. 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 Surgery: No Heart Disease: No Hosp/Surgery: Yes Autoimmune Disorder: No Anesthetic Complications: No Kidney Disease: Yes Abnormal Pap Smear: Yes Neuro/Epilepsy: No Psychiatric Disorders: No Other Medical Diseases: No Hepatitis/Liver Disease: No Significant Family History: No Varicosities/Phlebitis: No Trauma/Violence : No Thyroid Dysfunction: No Medical History Comments: PP hemorrhage with blood transfusion with first delivery, hospitalized for childbirth only ASCUS + HRHPV plan colpo after delivery UTI this INFECTIOUS HISTORY Gonorrhea: No Genital Herpes: No Chlamydia: No Tuberculosis: No Syphilis: No Hepatitis: No HIV/AIDS Exposure: No Rash or Viral Illness: No HPV: Yes Infectious History Comments: ascus + HRHPV PHYSICAL EXAM General: Normal HEENT: Normal Neurologic: Normal Thyroid: Deferred Heart: Normal Lungs: Normal Breast: Deferred Back: Normal Abdomen: Normal Genitourinary Exam: Normal Extremities: Normal DTRs: Normal Pelvic Type: Adequate Vital Signs: Reviewed; Within Normal Limits VAGINAL EXAM Dilatation: 4 Effacement: 70 Station: -1 MEMBRANES Membranes: Ruptured Amniotic Fluid Color: Clear FETUS A EGA: 39.4 Monitoring: External US FHR- Baseline: 135 Variability: Moderate 6-25bpm Accelerations: 15X15 Decelerations: None FHR Category: Category I PLANS FOR LABOR AND DELIVERY Labor and Delivery: None Pain Management: Epidural Feeding Preference: Formula Benefit of Breast Feed Discussed: Yes Circumcision: N/A INFORMED CONSENT Signature: with User ID: [email or web address]
[2016-07-02] MEDS: SENNOSIDES/DOCUSATE 8.6-50 MG 1 EACH TABLET PO SCH (09:22)
[2016-07-02] MEDS: FERROUS SULFATE 325 MG TABLET PO SCH ×2 (09:22→18:14)
[2016-07-02] MEDS: PRENATAL VITAMIN W-O CA NO5/FE FUMARATE/FA CAPSULE PO SCH (09:23)
[2016-07-02] MEDS: DOCUSATE SODIUM 100 MG CAPSULE PO SCH ×2 (09:23→18:14)
[2016-07-02] MEDS ORDERED: INFLUENZA ADLT QUAD (36MOS+) 2016-17 VAC 0.5 ML SYR IM PRN (10:45)
[2016-07-02] MEDS: IBUPROFEN 800 MG TABLET PO SCH ×2 (13:10→21:03)
--- NOTE | 2016-07-02 19:01 | L&D Flow Sheet ---
LD Flowsheet Datetime Report Generated by CPN: 07/02/2016 19:00 Datetime: 07/02/2016 08:40 Temperature (F): 98.0 (Aura Addison, RN) Temperature (C): 36.7 (QS system process) Pain Scale: 0 (Aura Addison, RN) Pain Presence: None/Denies (Aura Addison, RN) Pain Type: N/A (Aura Addison, RN) Datetime: 07/02/2016 07:35 Respirations: 17 (Aura Addison, RN) Pain Scale: 0 (Aura Jaime RN) Pain Presence: None/Denies (Aura Jaime RN) Pain Type: N/A (Aura Jaime RN)
[2016-07-03] MEDS: IBUPROFEN 800 MG TABLET PO SCH ×3 (05:49→22:08)
--- NOTE | 2016-07-03 06:01 | L&D General Admission ---
General Admit Datetime Report Generated by CPN: 07/03/2016 06:00 INFORMATION Patient Age: 25 (11/18/2017 22:07:QS system process) EDC: 07/04/2016 00:00 (07/01/2016 17:39:NAZ Oscar) : 2 (07/01/2016 17:39:NAZ Oscar) Para: 1 (07/01/2016 17:39:NAZ Oscar) Term: 1 (07/01/2016 17:39:Maryana Melara RNC) : 0 (07/01/2016 17:39:Maryana Melara RNLinda) Spontaneous Abortions: 0 (07/01/2016 17:39:NAZ Oscar) Induced Abortions: 0 (07/01/2016 17:39:NAZ Oscar) Livin (07/01/2016 17:39:NAZ Oscar) Cesareans: 0 (07/01/2016 17:39:NAZ Oscar) VBACs: 0 (07/01/2016 17:39:NAZ Oscar) Ectopic: 0 (07/01/2016 17:39:Maryana [place], [facility]) Multiple Births: 0 (07/01/2016 17:39:Maryana Wynnburg [facility]) Baby, Number in Womb: 1 (07/01/2016 17:39:Maryana Melara [facility]) 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: [facility] with [facility] (07/01/2016 17:39:Maryana Melara [facility]) Month of 1st Visit: October (07/01/2016 17:39:Maryana Melara [facility]) Adequate Care: Yes (07/01/2016 17:39:Maryana Melara [facility]) Prepregnancy Weight (lb): 127 (07/01/2016 17:39:Maryana Melara [facility]) Prepregnancy Weight (kg): 57.7 (07/01/2016 17:39:QS system process) Height (in): 61 (07/02/2016 09:29:QS system process) ALLERGIES Medication Allergy: No (07/01/2016 17:39:Maryana Melara RNC) Medication Allergies: No Known Allergies (07/01/2016) (07/01/2016 18:34:QS system process) Latex Allergy: No Latex Allergies (07/01/2016 17:39:Maryana Camp, RNC) COMMUNICATION Primary Language: Uzbek (07/01/2016 17:39:Maryana Camp, RNC) Medical Tx Preferred Language: Uzbek (07/01/2016 17:39:Maryana Camp, RNC) Communication Barrier(s): None (07/01/2016 17:39:Maryana Camp, RNC) DEMOGRAPHICS Address: [address] [place] [id number] (07/01/2016 16:47:QS system process) Zipcode: [address] (11/18/2015 22:07:QS system process) Home (07/01/2016 16:47:QS system process) Work (11/18/2015 22:07:QS system process) N: [phone] (11/18/2015 22:07:QS system process) Next of Kin Name: ISELA SEWELL (11/18/2015 22:07:QS system process) Next of Kin (11/18/2015 22:07:QS system process) Next of Kin Relationship: MO (11/18/2015 22:07:QS system process) Date of : 1990 (11/18/2015 22:07:QS system process) Marital Status: Single (11/18/2015 22:07:QS system process) Sex: Female (11/18/2015 22:07:QS system process) Occupation: Other (07/01/2016 17:39:NAZ Oscar) 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 [id number] (07/01/2016 17:39:NAZ Oscar) Marijuana: No (07/01/2016 17:39:NAZ Oscar) Cocaine: No (07/01/2016 17:39:Maryana Camp, RNC) Other Illicit Drugs: No (07/01/2016 17:39:Maryana Camp, RNC) VACCINE HISTORY Influenza Vaccine: No (07/01/2016 17:39:Maryana Camp, RNC) Influenza Date: declined (07/01/2016 17:39:Maryana Camp, RNC) Pneumococcal Vaccine: No (07/01/2016 17:39:Maryana Camp, RNC) Tetanus Vaccine: No (07/01/2016 17:39:Maryana Camp, RNC) Tetanus Date: declined (07/01/2016 17:39:Maryana Camp, RNC) Tdap Vaccine: No (07/01/2016 17:39:Maryana Camp, RNC) Tdap Date: declined (07/01/2016 17:39:Maryana Camp, RNC) Hepatitis B Vaccine: Yes (07/01/2016 17:39:Maryana Camp, RNC) Hepatitis B Vaccine Date : Middle School (07/01/2016 17:39:Maryana Camp, RNC) Technician Preventative Medicine: [facility] (07/01/2016 17:39:Maryana Melara, NAZ) Feeding Preference: Formula (07/01/2016 17:39:NAZ Oscar) Benefit of Breast Feed Discussed: Yes (07/01/2016 17:39:NAZ Oscar) Circumcision: N/A (07/01/2016 17:39:NAZ Oscar) Classes Attended: No (07/01/2016 17:39:NAZ Oscar) Tubal Ligation: Yes (07/01/2016 17:39:NAZ Oscar) Tubal Authorization Signed: Yes (07/01/2016 17:39:NAZ Oscar) Consent: N/A (07/01/2016 17:39:NAZ Oscar) Consent Signed: N/A (07/01/2016 17:39:NAZ Oscar) Pain Management Plans: Epidural (07/01/2016 17:39:NAZ Oscar) Plans for Labor and Delivery: None (07/01/2016 17:39:NAZ Oscar) Support Person: Kurtis Frazier (07/01/2016 17:39:NAZ Oscar) Support Person Relationship: Significant Other (07/01/2016 17:39:NAZ Oscar) Other Relationship: FOB (07/01/2016 17:39:NAZ Oscar) Cultural/Spritual Practice: No (07/01/2016 17:39:NAZ Oscar) Spir/Cult Dietary Needs: No (07/01/2016 17:39:NAZ Oscar) LIVING SITUATION/DISCHARGE PLAN Living Arrangements: House (07/01/2016 17:39:NAZ Oscar) Adequate Access to:: Electric; Heat; Refrigeration; Plumbing/Running water; Phone; Transportation (07/01/2016 17:39:NAZ Oscar) WIC Program: Yes (07/01/2016 17:39:NAZ Oscar) 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 Person: Kurtis Frazier (07/01/2016 17:39:NAZ Oscar) Person to Help after Discharge: Kurtis Frazier (07/01/2016 17:39:NAZ Oscar) Specify Current Resource Used: Medicaid, WIC (07/01/2016 17:39:NAZ Oscar) Car Seat for Discharge: Yes (07/01/2016 17:39:NAZ Oscar) Adoption Requested: No (07/01/2016 17:39:NAZ Oscar) Pt Contact w/infant Post : N/A (07/01/2016 17:39:NAZ Oscar) LABS Blood Type: AB Positive (07/01/2016 17:39:Shelia Mtz RN) Antibody Screen: NEGATIVE (07/01/2016 17:39:Shelia Mtz RN) Hemoglobin: 10.7 L (07/01/2016 17:25:QS system process) Hematocrit: 30.9 L (07/01/2016 17:25:QS system process) MCV: 89 (07/01/2016 17:25:QS system process) Group Beta Strep: NEGATIVE (07/01/2016 17:39:Shelia Mtz RN) Gonorrhea: Negative (07/01/2016 17:39:Shelia Mtz RN) Chlamydia: Negative (07/01/2016 17:39:Shelia Mtz RN) RPR/VDRL: Nonreactive (07/01/2016 17:39:Shelia Mtz RN) HIV Exposure Test: Negative (07/01/2016 17:39:Shelia Mtz RN) Hepatitis B: Negative (07/01/2016 17:39:Shelia Mtz RN) Rubella: Non-Immune (07/01/2016 17:39:Shelia Mtz RN) Varicella: EQUIVOCAL (07/01/2016 17:39:Shelia Mtz RN) OB/PREVIOUS HISTORY Previous Procedures: Ultrasound (07/01/2016 17:39:NAZ Oscar) Current Procedures: Ultrasound (07/01/2016 17:39:NAZ Oscar) History of Previous : No (07/01/2016 17:39:NAZ Oscar) History of Gestational Diabetes: No (07/01/2016 17:39:NAZ Oscar) History of PIH: No (07/01/2016 17:39:NAZ Oscar) History of Incompetent Cervix: No (07/01/2016 17:39:NAZ Oscar) History of Placenta Previa/Abrup: No (07/01/2016 17:39:NAZ Oscar) History of Macrosomia: No (07/01/2016 17:39:NAZ Oscar) History of IUGR: No (07/01/2016 17:39:NAZ Oscar) History of Hemorrhage: Yes (07/01/2016 17:39:NAZ Oscar) History of Loss/Stillborn: No (07/01/2016 17:39:NAZ Oscar) History of : No (07/01/2016 17:39:NAZ Oscar) History of D (Rh) Sensitization: No (07/01/2016 17:39:NAZ Oscar) History Recurrent Loss/Stillborn: No (07/01/2016 17:39:NAZ Oscar) History Depression/PP Depression: No (07/01/2016 17:39:NAZ Oscar) History of Uterine Anomaly/HAROLDO: No (07/01/2016 17:39:NAZ Oscar) History of Infertility: No (07/01/2016 17:39:NAZ Oscar) History of ART Treatment: No (07/01/2016 17:39:NZA Oscar) History of HAROLDO: No (07/01/2016 17:39:NAZ Oscar) Comments Obstetrical History: G1- 2011 40.6 female; PP hemorrhage with first received two units of blood G2-denies complications with this (07/01/2016 17:39:Lisa Coffey RN) MEDICAL HISTORY Med Hx Diabetes: No (07/01/2016 17:39:NAZ Oscar) Med Hx Hypertension: No (07/01/2016 17:39:NAZ Oscar) Med Hx Heart Disease: No (07/01/2016 17:39:NAZ Oscar) Med Hx Autoimmune Disorder: No (07/01/2016 17:39:NAZ Oscar) Med Hx Kidney Disease/UTI: Yes (07/01/2016 17:39:Lisa Coffey RN) Med Hx Neurologic/Epilepsy: No (07/01/2016 17:39:NAZ Oscar) Med Hx Psychiatric Disorders: No (07/01/2016 17:39:NAZ Oscar) Med Hx Hepatitis/Liver Disease: No (07/01/2016 17:39:NAZ Oscar) Med Hx Varicosities/Phlebitis: No (07/01/2016 17:39:NAZ Oscar) Med Hx Thyroid Dysfunction: No (07/01/2016 17:39:NAZ Oscar) Med Hx Trauma/Violence: No (07/01/2016 17:39:NAZ Oscar) Med Hx Blood Transfusion: Yes (07/01/2016 17:39:NAZ Oscar) Med Hx Pulmonary (Asthma,TB): No (07/01/2016 17:39:NAZ Oscar) Med Hx Breast: No (07/01/2016 17:39:NAZ Oscar) 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 (07/01/2016 17:39:NAZ Oscar) Med Hx Hospitalization/Surgery: Yes (07/01/2016 17:39:NAZ Oscar) Med Hx Anesthetic Complications: No (07/01/2016 17:39:NAZ Oscar) Med Hx Abnormal Pap Smear: Yes (07/01/2016 17:39:NAZ Oscar) Other Medical Diseases: No (07/01/2016 17:39:NAZ Oscar) Med Hx Significant Family Hx: No (07/01/2016 17:39:NAZ Oscar) Details of Med/Surg Hx: PP hemorrhage with blood transfusion with first delivery, hospitalized for childbirth only ASCUS + HRHPV plan colpo after delivery UTI this (07/01/2016 17:39:Lisa Coffey RN) INFECTIOUS HISTORY Inf Hx Gonorrhea: No (07/01/2016 17:39:[facility]) Inf Hx Chlamydia: No (07/01/2016 17:39:[facility]) Inf Hx Syphilis: No (07/01/2016 17:39:[facility]) Inf Hx HIV/AIDS: No (07/01/2016 17:39:[facility]) Inf Hx Human Papilloma Virus: Yes (07/01/2016 17:39:[facility]) Inf Hx Pt/Partner Genital Herpes: No (07/01/2016 17:39:[facility]) Inf Hx Tuberculosis/Exposure: No (07/01/2016 17:39:[facility]) Inf Hx Hepatitis B,C: No (07/01/2016 17:39:[facility]) Inf Hx Rash or Viral Illness: No (07/01/2016 17:39:[facility]) Details of Infectious Hx: ascus + HRHPV (07/01/2016 17:39:[facility]) GENETIC HISTORY Gen Hx Age >=35 at NICO: No (07/01/2016 17:39:[facility]) Gen Hx Thalassemia: No (07/01/2016 17:39:Maryana Camp, [facility]) Gen Hx Congenital Heart Defect: No (07/01/2016 17:39:Maryana Camp, [facility]) Gen Hx Neural Tube Defect: No (07/01/2016 17:39:Maryana Camp, [facility]) Gen Hx Down's Syndrome: No (07/01/2016 17:39:Maryana Melara, [facility]) Gen Hx Nick-Sachs: No (07/01/2016 17:39:Maryana Melara, [facility]) Gen Hx Peggy: No (07/01/2016 17:39:Maryana Camp, [facility]) Gen Hx Familial Dysautonomia: No (07/01/2016 17:39:Maryana Melara, [facility]) Gen Hx Sickle Cell Disease/Trait: No (07/01/2016 17:39:Maryana Melara, [facility]) Gen Hx Hemophilia/Blood Disorder: No (07/01/2016 17:39:Maryana Melara [facility]) Gen Hx Muscular Dystrophy: No (07/01/2016 17:39:Maryana Melara, [facility]) Gen Hx Cystic Fibrosis: No (07/01/2016 17:39:Maryana Melara, [facility]) Gen Hx Huntingtons Chorea: No (07/01/2016 17:39:Maryana Melara, [facility]) Gen Hx Mental Retardation/Autism: No (07/01/2016 17:39:Mayrana Melara, [facility]) Gen Hx Tested for Fragile X: No (07/01/2016 17:39:Maryana Melara [facility]) Gen Hx Other Inher/Chromosomal: No (07/01/2016 17:39:Maryana Melara, [facility]) Gen Hx Maternal Metabolic DO: No (07/01/2016 17:39:Maryana Camp, [facility]) Gen Hx Pt Father or FOB Defect: No (07/01/2016 17:39:Maryana Melara, [facility]) Gen Hx Other Genetic History: No (07/01/2016 17:39:Maryana Melara, [facility]) Gen Hx Drugs/Meds since LMP: No (07/01/2016 17:39:Maryana Melara [facility])
--- NOTE | 2016-07-03 06:01 | L&D Current Admission ---
Current Admit Datetime Report Generated by CPN: 07/03/2016 06:00 ADMISSION INFORMATION Current Admit Date/Time: 07/01/2016 17:30 (07/01/2016 17:39:NAZ Oscar) Reason for Admission: Rupture of Membranes (07/01/2016 17:39:NAZ Oscar) Chief Complaint: Suspected Rupture of Membranes (07/01/2016 17:59:NAZ Oscar) Medications During : Vitamin (07/01/2016 17:39:NAZ Oscar) EGA per Dates: 39.4 (07/01/2016 17:39:QS system process) Method of Arrival: Ambulatory (07/01/2016 17:39:NAZ Oscar) Admitted From: Home (07/01/2016 17:39:NAZ Oscar) Reason for Induction: Not Applicable (07/01/2016 17:39:NAZ Oscar) Records Available: Yes (07/01/2016 17:39:NAZ Oscar) General Admission Information: Reviewed; Updated; Confirmed (07/01/2016 17:39:NAZ Oscar) General Admission Reviewed By: Maryana CHILDS (07/01/2016 17:39:NAZ Oscar) BELONGINGS/ADVANCED DIRECTIVES Valuables/Personal Effects: Purse/Wallet; Cell Phone; Jewelry (07/01/2016 17:39:NAZ Oscar) Other Belongings: See [facility] valuables consent (07/01/2016 17:39:NAZ Oscar) Disposition of Belongings: Kept with Patient (07/01/2016 17:39:NAZ Oscar) Advance Direct for Healthcare: No, and Wants No Information (07/01/2016 17:39:NAZ Oscar) Durable Power of Chart Clerk: No (07/01/2016 17:39:NAZ Oscar) Living Will: No (07/01/2016 17:39:NAZ Oscar) Organ Donor: No (07/01/2016 17:39:NAZ Oscar) Pt Rights Information Given: No (07/01/2016 17:39:NAZ Oscar) Pt Understands Pt Rights: No (07/01/2016 17:39:NAZ Oscar) LEARNING ASSESSMENT Knowledge Level: Understands L_D Process; Understands Care Activities (07/01/2016 17:39:NAZ Oscar) Barriers to Learning: None (07/01/2016 17:39:NAZ Oscar) Learning Readiness: Motivated (07/01/2016 17:39:NAZ Oscar) Learns Best By: 1 to 1 Instruction; Demonstration (07/01/2016 17:39:NAZ Oscar) Learning Needs: Labor and Delivery Process; Pain Management; Symptoms to Report; Treatment Plan; Medication; Diagnosis; Nutrition; Equipment; Care; Community Resources (07/01/2016 17:39:NAZ Oscar) DOMESTIC VIOLANCE SCREENING Dom Viol Threatened/Hurt: No (07/01/2016 17:39:NAZ Oscar) Hx of Abuse/Neglect past 2yrs: No (07/01/2016 17:39:NAZ Oscar) Feel Unsafe Going Home: No (07/01/2016 17:39:NAZ Oscar) Addt'l Observ Indicating Abuse: No (07/01/2016 17:39:NAZ Oscar) Reason Unable to Complete Screen: N/A, Screen Completed (07/01/2016 17:39:NAZ Oscar) Considered Personal Harm/Suicide: No (07/01/2016 17:39:NAZ Oscar) NUTRITIONAL/FUNCTIONAL SCREENING Problem with Appetite >5 Days: No (07/01/2016 17:39:NAZ Oscar) Chew/Swallow Difficulties: No (07/01/2016 17:39:NAZ Oscar) Inappropriate Wt Gain/Loss: No (07/01/2016 17:39:NAZ Oscar) Presence Skin Breakdown/Ulcer: No (07/01/2016 17:39:NAZ Oscar) Special Diet: No (07/01/2016 17:39:NAZ Oscar) Pt Requests Bee Producer Visit: No (07/01/2016 17:39:NAZ Oscar) Hx of Any of the Following?: N/A (07/01/2016 17:39:NAZ Oscar) New Diagnosis of: N/A (07/01/2016 17:39:NAZ Oscar) Requires Assist w/Ambulation: No (07/01/2016 17:39:NAZ Oscar) Uses Assist Device to Ambulate: No (07/01/2016 17:39:NAZ Oscar) Pt Requires Help w/ADL's: No (07/01/2016 17:39:NAZ Oscar)
--- NOTE | 2016-07-03 06:16 | L&D Care Plan ---
LD CARE PLANS Datetime Report Generated by CPN: 07/03/2016 06:15 Datetime: 07/01/2016 17:13 Pain State: Risk For (Aura Jaime RN) Related To: Labor and Delivery Process (Aura Jaime RN) Goal(s): Patients Pain will be Assessed and Managed; Patient will Verbalize Adequate Relief of Pain or the Ability to [place] with Current Pain (Aura Jaime RN) Interventions: Assess Pain Severity on Scale of 0 (None) to 5 (Severe); Assess Type, Location and Intensity of Pain Each Time Client Reports Discomfort and Notify Provider if Unusal Pain Develops; Encourage Proper Breathing and Relaxation Techniques; Offer Alternatives Such as Repositioning, Calm Environment, Massages, Diversional Activities, Ice Pack, Splinting, and Ambulation (Aura Jaime RN) Outcome: Patient will Report Absence or Relief of Pain Consistent with Established Pain Goal (Aura Jaime RN) Status: Ongoing (Aura Jaime RN) Outcome: Patient will have a Decrease in Signs and Symptoms of Discomfort (Aura Jaime RN) Status: Ongoing (Aura Jaime RN) Anxiety State: Not Applicable (Aura Jaime RN) Knowledge Deficit State: Risk For (Aura Jaime RN) Related To: Labor and Delivery Process (Aura Jaime RN) Goal(s): Patient will Accurately Verbalize Understanding of Plan of Care and Treatment; Patient and Family will Accurately Verbalize Understanding of the Disease Process (Aura Jaime RN) Interventions: Assess Motivation and Willingness of Patient/Family to Learn; Assess Preferred Learning Mode: One to One Instruction, Reading, Videos, Group Discussion or Demonstration; Assess Barriers to Learning: Pain, Emotional State, Language Barrier, Cognitive Impairment, Visual or Hearing Deficits (Aura Jaime RN) Outcome: Patient and Family will Verbalize Understanding of Condition, Treatment and Signs and Symptoms to Report (Aura Jaime RN) Status: Ongoing (Aura Jaime RN) Outcome: Patient will Identify Perceived Learning Needs and Express Motivation to Learn (Aura Jaime RN) Status: Ongoing (Aura Jaime RN) Infection State: Not Applicable (Aura Jaime RN) Interventions: Instruct and Reinforce Proper Handwashing, Hygiene, and Care Techniques to Patient and Family; Monitor Vital Signs; Monitor Patient for the Following Signs of Infection: Fever, Abdominal Tenderness, Unusual Discharge; Monitor Aminiotic Fluid, Urine and Lochia for Color and Odor (Aura Jaime, LUCY) Outcome: Patient will Remain Free of Infection (Aura Jaime RN) Status: Ongoing (Aura Jaime RN) Outcome: Infection will be Recognized Early to Allow for Prompt Treatment (Aura Jaime RN) Status: Ongoing (Aura Jaime RN) Fluid Volume State: Not Applicable (Aura Addison, RN) Injury State: Not Applicable (Aura Jaime, RN) Impaired Skin Integrity State: Risk For (Aura Jaime RN) Related To: Vaginal Delivery (Aura Jaime RN) Goal(s): Patient will Maintain Optimal Skin Integrity, Free of Breakdown, Injury or Infection (Aura Jaime RN) Interventions: Complete Screening for Pressure Ulcer Risk and Initiate Protocol per Hospital Policy; Monitor Site of Skin Impairment for Color Changes, Redness, Swelling, Warmth, Pain or Other Signs of Infection; Encourage and Assist with Position Changes (Aura Jaime RN) Outcome: Patient will not have Evidence of Injury Such as Skin Breakdown, Scrapes, Cuts, or Bruising (Aura Jaime RN) Status: Ongoing (Aura Jaime RN) Outcome: Patient will Report Any Altered Sensation or Pain at Site of Skin Impairment (Aura Jaime RN) Status: Ongoing (Aura Jaime RN) Parenting Impaired State: Not Applicable (Aura Addison, RN) Nutrition State: Not Applicable (Aura Addison, RN) Grieving State: Not Applicable (Aura Addison, RN) Datetime: 07/01/2016 17:12 Pain State: Risk For (Aura Jaime RN) Related To: Labor and Delivery Process (Aura Jaime RN) Goal(s): Patients Pain will be Assessed and Managed; Patient will Verbalize Adequate Relief of Pain or the Ability to [place] with Current Pain (Aura Jaime RN) Interventions: Assess Pain Severity on Scale of 0 (None) to 5 (Severe); Assess Type, Location and Intensity of Pain Each Time Client Reports Discomfort and Notify Provider if Unusal Pain Develops; Encourage Proper Breathing and Relaxation Techniques; Offer Alternatives Such as Repositioning, Calm Environment, Massages, Diversional Activities, Ice Pack, Splinting, and Ambulation (Aura Jaime RN) Outcome: Patient will Report Absence or Relief of Pain Consistent with Established Pain Goal (Aura Jaime RN) Status: Ongoing (Aura Jaime RN) Outcome: Patient will have a Decrease in Signs and Symptoms of Discomfort (Aura Jaime RN) Status: Ongoing (Aura Jaime RN) Anxiety State: Not Applicable (Aura Jaime RN) Knowledge Deficit State: Risk For (Aura Jaime RN) Related To: Labor and Delivery Process (Aura Jaime RN) Goal(s): Patient will Accurately Verbalize Understanding of Plan of Care and Treatment; Patient and Family will Accurately Verbalize Understanding of the Disease Process (Aura Jaime RN) Interventions: Assess Motivation and Willingness of Patient/Family to Learn; Assess Preferred Learning Mode: One to One Instruction, Reading, Videos, Group Discussion or Demonstration; Assess Barriers to Learning: Pain, Emotional State, Language Barrier, Cognitive Impairment, Visual or Hearing Deficits (Aura Jaime RN) Outcome: Patient and Family will Verbalize Understanding of Condition, Treatment and Signs and Symptoms to Report (Aura Jaime RN) Status: Ongoing (Aura Jaime RN) Outcome: Patient will Identify Perceived Learning Needs and Express Motivation to Learn (Aura Jaime RN) Status: Ongoing (Aura Jaime RN) Infection State: Not Applicable (Aura Jaime RN) Interventions: Instruct and Reinforce Proper Handwashing, Hygiene, and Care Techniques to Patient and Family; Monitor Vital Signs; Monitor Patient for the Following Signs of Infection: Fever, Abdominal Tenderness, Unusual Discharge; Monitor Aminiotic Fluid, Urine and Lochia for Color and Odor (Aura Jaime RN) Outcome: Patient will Remain Free of Infection (Aura Jaime RN) Status: Ongoing (Aura Jaime RN) Outcome: Infection will be Recognized Early to Allow for Prompt Treatment (Aura Jaime RN) Status: Ongoing (Aura Jaime RN) Fluid Volume State: Not Applicable (Aura Manningmes, ) Injury State: Not Applicable (Aura Jaime, ) Impaired Skin Integrity State: Risk For (Aura Jaime RN) Related To: Vaginal Delivery (Aura Jaime RN) Goal(s): Patient will Maintain Optimal Skin Integrity, Free of Breakdown, Injury or Infection (Aura Jaime RN) Interventions: Complete Screening for Pressure Ulcer Risk and Initiate Protocol per Hospital Policy; Monitor Site of Skin Impairment for Color Changes, Redness, Swelling, Warmth, Pain or Other Signs of Infection; Encourage and Assist with Position Changes (Aura Jaime RN) Outcome: Patient will not have Evidence of Injury Such as Skin Breakdown, Scrapes, Cuts, or Bruising (Aura Jaime RN) Status: Ongoing (Aura Jaime RN) Outcome: Patient will Report Any Altered Sensation or Pain at Site of Skin Impairment (Aura Jaime RN) Status: Ongoing (Aura Jaime RN) Parenting Impaired State: Not Applicable (Aura Jaime RN) Nutrition State: Not Applicable (Aura Addison, RN) Grieving State: Not Applicable (Aura Addison, RN)
[2016-07-03 07:42] LABS: HEMOGLOBIN 10.7 g/dL (12.0-15.5); HGB HCT DIFFERENCE 1.1; MEAN CORPUSCULAR HEMOGLOBIN 30.4 pg (27.0-33.4); MEAN CORPUSCULAR HGB CONC 34.6 g/dL (32.0-36.0); MEAN CORPUSCULAR VOLUME 88 fl (80-97); RED BLOOD COUNT 3.52 10^6/uL (3.72-5.28); RED CELL DISTRIBUTION WIDTH 13.6 % (11.5-14.0); WHITE BLOOD COUNT 10.8 10^3/uL (4.0-10.5)
--- NOTE | 2016-07-03 08:37 | PDOC PROGRESS REPORT ---
Subjective-OB Subjective: Post Delivery Day: 26 year old. Denies any needs at this time OOB in chair, hsb in room, doing well, scant bleeding, bottle feeding, ambulating, ready to go home, baby doing well Physical Exam (OB) Vital Signs: Temp Pulse Resp BP Pulse Ox 98.0 F 42 L 18 112/85 99 07/02/16 20:23 07/02/16 20:23 07/02/16 20:23 07/02/16 20:23 07/02/16 20:23 Intake & Output 07/02/16 07/03/16 07/04/16 06:59 06:59 06:59 Intake Total 600 Balance 600 Weight 71.9 kg - PIH/Pre-Eclampsia DTR's: 2 + Clonus: Negative Headache: Absent Epigastric Pain: No Visual Changes: No - Lochia Lochia Amount: Scant < 10 ml Lochia Color: Rubra/Red - Abdomen Description: Tender, Soft, Round Hernia Present: No Fundal Description: Firm, Midline Fundal Height: u/u - u/2 Objective-Diagnostic Laboratory: 07/03/16 06:36 07/03/16 06:36 WBC 10.8 H RBC 3.52 L Hgb 10.7 L Hct 31.0 L MCV 88 MCH 30.4 MCHC 34.6 RDW 13.6 Plt Count 156 Assessment and Plan(PN) - Assessment and Plan (1) Vaginal delivery Is this a current diagnosis for this admission?: Yes - Time Spent with Patient Time with patient: Less than 15 minutes Medications reviewed and adjusted accordingly: Yes - Disposition Anticipated Discharge: Home Within: within 24 hours
[2016-07-03] MEDS: PRENATAL VITAMIN W-O CA NO5/FE FUMARATE/FA CAPSULE PO SCH (09:07)
[2016-07-03] MEDS: DOCUSATE SODIUM 100 MG CAPSULE PO SCH ×2 (09:07→17:04)
[2016-07-03] MEDS: FERROUS SULFATE 325 MG TABLET PO SCH ×2 (09:08→17:04)
[2016-07-03] MEDS: SENNOSIDES/DOCUSATE 8.6-50 MG 1 EACH TABLET PO SCH (09:08)
[2016-07-04] MEDS: IBUPROFEN 800 MG TABLET PO SCH (05:14)
--- NOTE | 2016-07-04 09:04 | PDOC PROGRESS REPORT ---
Subjective-OB Subjective: Post Delivery Day: 26 year old. Denies any needs at this time Doing well, ready to go home, hsb at BS, bottle feeding, eating well, voiding, plans on BTL in 4 weeks Physical Exam (OB) Vital Signs: Temp Pulse Resp BP Pulse Ox 98.0 F 62 17 116/75 99 07/04/16 07:47 07/04/16 07:47 07/04/16 07:47 07/03/16 20:01 07/04/16 07:47 Intake & Output 07/03/16 07/04/16 07/05/16 06:59 06:59 06:59 Intake Total 600 240 Balance 600 240 - PIH/Pre-Eclampsia DTR's: 2 + Clonus: Negative Headache: Absent Epigastric Pain: No Visual Changes: No - Lochia Lochia Amount: Scant < 10 ml Lochia Color: Rubra/Red - Abdomen Description: Tender, Soft, Round Hernia Present: No Fundal Description: Firm, Midline Fundal Height: u/u - u/2 Objective-Diagnostic Laboratory: 07/03/16 06:36 Assessment and Plan(PN) - Assessment and Plan (1) Vaginal delivery Is this a current diagnosis for this admission?: Yes - Time Spent with Patient Time with patient: Less than 15 minutes Medications reviewed and adjusted accordingly: Yes - Disposition Anticipated Discharge: Home Within: Other - home today
--- NOTE | 2016-07-04 09:07 | PDOC DISCHARGE SUMMARY ---
Final Diagnosis Discharge Date: 07/04/16 - Final Diagnosis (1) Vaginal delivery Is this a current diagnosis for this admission?: Yes Discharge Data - Discharge Medication Home Medications: -U Capsule 1 tab PO DAILY 04/25/11 Gestational Age: 39.5 Reason(s) for Admission: PROM Procedures: Ultrasound Intrapartum Procedure(s): Spontaneous Vaginal Delivery Complication(s): Laceration-Periurethral Laceration-Degree: 1st - [place] Data Baby 1 Female at 1 minute: 8 at 5 minutes: 9 Weight: 3.969 kg Home with Mother: Yes Complications: No - Diagnosis Test Laboratory: Temp Pulse Resp BP Pulse Ox 98.0 F 62 17 116/75 99 07/04/16 07:47 07/04/16 07:47 07/04/16 07:47 07/03/16 20:01 07/04/16 07:47 07/01/16 07/01/16 07/03/16 16:45 17:25 06:36 RBC 3.48 L 3.52 L Hgb 10.7 L 10.7 L Hct 30.9 L 31.0 L Urine Opiates Screen NEGATIVE - Discharge information/Instructions Discharge Activity: Activity As Tolerated, No Lifting Over 10 Pounds, Pelvic Rest, No tub bath Discharge Diet: As Tolerated, Regular Disposition: HOME, SELF-CARE Follow up with: [facility] in: 4, Weeks
[2016-07-04] MEDS: PRENATAL VITAMIN W-O CA NO5/FE FUMARATE/FA CAPSULE PO SCH (09:11)
[2016-07-04] MEDS: FERROUS SULFATE 325 MG TABLET PO SCH (09:11)
[2016-07-04] MEDS: DOCUSATE SODIUM 100 MG CAPSULE PO SCH (09:11)
[2016-07-04] MEDS: SENNOSIDES/DOCUSATE 8.6-50 MG 1 EACH TABLET PO SCH (09:11)
[2016-07-04 09:13] VITALS: BP 117/74
== END 2016-07-04 12:03 | disposition home or self-care (01) | DRG 775 ==
LOC: LC 16:46 → LR 17:13 → 2S 07-02 08:46
PROVIDERS: ADMIT Obstetrics & Gynecology; ATTEND Obstetrics & Gynecology
PROC: 10E0XZZ Delivery of Products of Conception, External Approach (ICD-10-PCS; principal; 2016-07-02)
PROC: 0UQMXZZ Repair Vulva, External Approach (ICD-10-PCS; 2016-07-02)
PROC: 4A1HXCZ Monitoring of Products of Conception, Cardiac Rate, External Approach (ICD-10-PCS; 2016-07-02)
PROC: 3E0234Z Introduction of Serum, Toxoid and Vaccine into Muscle, Percutaneous Approach (ICD-10-PCS; 2016-07-02)
PROC: 3E0234Z Introduction of Serum, Toxoid and Vaccine into Muscle, Percutaneous Approach (ICD-10-PCS; 2016-07-02)
DX: O71.82 Other specified trauma to perineum and vulva (principal); O69.81X0 Labor and delivery complicated by cord around neck, without compression, not applicable or unspecified; Z37.0 Single live birth; Z3A.39 39 weeks gestation of pregnancy; Z23 Encounter for immunization
CPT/HCPCS: 36415; 80307; 81005; 84112; 85025; 85027; 86592; 86850; 86900; 86901; 90686; 90707; 90715; 94760; J2210; J2300; J2550; J2590; J3490

== ENCOUNTER 2016-07-13 05:03 | Emergency (ER) | payer MEDICAID ==
[2016-07-13] MEDS ORDERED: NORMAL SALINE 1000 ML 1,000 ML IV ONE (05:17)
[2016-07-13 05:56] LABS: ABSOLUTE EOSINOPHILS # (AUTO) 0.2 10^3/uL (0.0-0.6); ABSOLUTE LYMPHOCYTES (AUTO) 1.3 10^3/uL (0.5-4.7); ABSOLUTE MONOCYTES (AUTO) 0.6 10^3/uL (0.1-1.4); ABSOLUTE NEUT (AUTO) 10.7 10^3/uL (1.7-8.2); BASOPHILS % (AUTO) 0.2 % (0-2); EOSINOPHILS % (AUTO) 1.2 % (0-6); HEMATOCRIT 39.6 % (36.0-47.0); HEMOGLOBIN 13.5 g/dL (12.0-15.5); HGB HCT DIFFERENCE 0.9; LYMPHOCYTES % (AUTO) 10.2 % (13-45); MEAN CORPUSCULAR HGB CONC 34.1 g/dL (32.0-36.0); MEAN CORPUSCULAR VOLUME 88 fl (80-97); MONOCYTES % (AUTO) 4.8 % (3-13); RED CELL DISTRIBUTION WIDTH 13.7 % (11.5-14.0); SEGMENTED NEUTROPHILS % (AUTO) 83.6 % (42-78); WHITE BLOOD COUNT 12.7 10^3/uL (4.0-10.5)
[2016-07-13 06:12] LABS: ALANINE AMINOTRANSFERASE 19 U/L (9-52); ALBUMIN 4.5 g/dL (3.5-5.0); ALKALINE PHOSPHATASE 119 U/L (38-126); ANION GAP 13 (5-19); ASPARTATE AMINO TRANSFERASE 18 U/L (14-36); BILIRUBIN,TOTAL 0.9 mg/dL (0.2-1.3); BLOOD UREA NITROGEN 17 mg/dL (7-20); CALCIUM 10.2 mg/dL (8.4-10.2); CARBON DIOXIDE 25 mmol/L (22-30); CHLORIDE 106 mmol/L (98-107); CREATININE RESULT 0.68 mg/dL (0.52-1.25); GLUCOSE 90 mg/dL (75-110); POTASSIUM 3.9 mmol/L (3.6-5.0); SODIUM 143.6 mmol/L (137-145); TOTAL PROTEIN 7.6 g/dL (6.3-8.2)
--- NOTE | 2016-07-13 06:34 | ER Document Report ---
ED GI/ - General Time seen by provider: 06:30 Mode of Arrival: Ambulatory Information source: Patient, Relative - spouse TRAVEL OUTSIDE OF THE [place] IN LAST 30 DAYS: No - HPI Patient complains to provider of: Abdominal pain, Vaginal bleeding Onset: Other - see HPI note Quality of pain: Cramping Pain Level: 2 Context: Other - <JOHNNA LUNA - Last Filed: 07/13/16 06:46> <SHANE NUNEZ - Last Filed: 07/13/16 11:07> - General Chief Complaint: Vaginal Bleeding Stated Complaint: VAGINAL BLEEDING Notes: Patient is a 26 year old female presenting to the emergency department with complaints of vaginal bleeding. Patient delivered her second child on 07/02/16. Since then the patient's vaginal bleeding has not stopped and today is 11 days . Patient has also had some cramping. Patient states that she passed a clot at 04:00 this morning. Patient states she was seen on Tuesday for a UTI. Patient has a history of hemorrhaging with her first child's . Patient states she was given medication to help prevent hemorrhaging for this . Patient has no known allergies and no past surgical history. (JOHNNA LUNA) - Related Data Allergies/Adverse Reactions: No Known Allergies Allergy (Verified 07/13/16 05:11) Past Medical History - General Information source: Patient - Social History Smoking Status: Never Smoker Cigarette use (# per day): No Chew tobacco use (# tins/day): No Frequency of alcohol use: None Drug Abuse: None Family History: None Patient has suicidal ideation: No Patient has homicidal ideation: No - Past Medical History Cardiac Medical History: Reports: Hx Hypertension - during (last month of ) Surgical Hx: Negative - Immunizations Hx Diphtheria, Pertussis, Tetanus Vaccination: Yes <JOHNNA LUNA - Last Filed: 07/13/16 06:46> Review of Systems - Review of Systems Constitutional: No symptoms reported EENT: No symptoms reported Cardiovascular: No symptoms reported Respiratory: No symptoms reported Gastrointestinal: See HPI, Abdominal pain Genitourinary: No symptoms reported Female Genitourinary: See HPI, Vaginal bleeding, Other - Musculoskeletal: No symptoms reported Skin: No symptoms reported Hematologic/Lymphatic: No symptoms reported Neurological/Psychological: No symptoms reported -: Yes All other systems reviewed and negative <JOHNNA LUNA - Last Filed: 07/13/16 06:46> Physical Exam - Vital signs Interpretation: Normal - General General appearance: Appears well, Alert In distress: Mild - HEENT Head: Normocephalic, Atraumatic Eyes: Normal Pupils: PERRL Mucous membranes: Moist - Respiratory Respiratory status: No respiratory distress Chest status: Nontender Breath sounds: Normal Chest palpation: Normal - Cardiovascular Rhythm: Regular Heart sounds: Normal auscultation Murmur: No - Abdominal Inspection: Normal Distension: No distension Bowel sounds: Normal Tenderness: Nontender Organomegaly: No organomegaly - Back Back: Normal, Nontender - Extremities General upper extremity: Normal inspection, Normal ROM, Normal strength General lower extremity: Normal inspection, Normal ROM, Normal strength - Neurological Neuro grossly intact: Yes Cognition: Normal Orientation: AAOx4 [place] Coma Scale Eye Opening: Spontaneous [place] Coma Scale Verbal: Oriented [place] Coma Scale Motor: Obeys Commands [place] Coma Scale Total: 15 Speech: Normal - Psychological Associated symptoms: Normal affect, Normal mood - Skin Skin Temperature: Warm Skin Moisture: Dry <JOHNNA LUNA - Last Filed: 07/13/16 06:46> Course - Laboratory Result Diagrams: 07/13/16 05:45 07/13/16 05:45 <JOHNNA LUNA - Last Filed: 07/13/16 06:46> - Laboratory Result Diagrams: 07/13/16 05:45 07/13/16 05:45 - Diagnostic Test Radiology reviewed: Reports reviewed - Normal 10 day ultrasound. <SHANE NUNEZ - Last Filed: 07/13/16 11:07> - Vital Signs Vital signs: Temp Pulse Resp BP Pulse Ox 97.9 F 108 H 18 142/98 H 97 07/13/16 05:05 07/13/16 05:05 07/13/16 05:05 07/13/16 05:05 07/13/16 05:05 (JOHNNA LUNA) (SHANE NUNEZ) - Laboratory Laboratory results interpreted by az: 07/13/16 07/13/16 05:45 08:45 WBC 12.7 H Seg Neutrophils % 83.6 H Lymphocytes % 10.2 L Absolute Neutrophils 10.7 H Urine Blood LARGE H Ur Leukocyte Esterase SMALL H (JOHNNA LUNA) (SHANE NUNEZ) Discharge <JOHNNA LUNA - Last Filed: 07/13/16 06:46> <SHANE NUNEZ - Last Filed: 07/13/16 11:07> - Discharge Clinical Impression: bleeding Qualifiers: hemorrhage type: unspecified Qualified Code(s): O72.1 - Other immediate hemorrhage Condition: Stable Disposition: HOME, SELF-CARE Additional Instructions: Follow-up with your [employer] doctor this week if bleeding does not slow down. RETURN TO THE EMERGENCY ROOM IF ANY NEW OR WORSENING SYMPTOMS. Referrals: HANNAH JAIN MD [Primary Care Provider] - Follow up as needed Scribe Attestation: 07/13/16 11:07 I personally performed the services described in the documentation, reviewed and edited the documentation which was dictated to the scribe in my presence, and it accurately records my words and actions. (SHANE NUNEZ) Scribe Documentation - Scribe Written by Scribe:: Johnna Luna 07/13/16 06:57 acting as scribe for :: Ch[place]o <JOHNNA LUNA - Last Filed: 07/13/16 06:46>
[2016-07-13 09:12] LABS: APPEARANCE,URINE CLEAR; BILIRUBIN,URINE NEGATIVE (NEGATIVE); GLUCOSE, URINE NEGATIVE (NEGATIVE); KETONES,URINE NEGATIVE (NEGATIVE); LEUKOCYTE ESTERASE,URINE SMALL (NEGATIVE); NITRITE,URINE NEGATIVE (NEGATIVE); PROTEIN,URINE NEGATIVE (NEGATIVE); URINE SPECIFIC GRAVITY 1.008; UROBILINOGEN,URINE NEGATIVE mg/dL (<2.0)
[2016-07-13] MEDS ORDERED: MISOPROSTOL 0.2 MG TABLET PO ONE (11:04)
[2016-07-13 12:54] VITALS: BP 132/93
== END 2016-07-13 11:38 | disposition home or self-care (01) ==
LOC: ER 05:03
DX: O72.2 Delayed and secondary postpartum hemorrhage (principal); O90.89 Other complications of the puerperium, not elsewhere classified; R10.9 Unspecified abdominal pain
CPT/HCPCS: 36415; 76856; 80053; 81001; 85025; 99284

== ENCOUNTER 2016-08-05 05:36 | Day surgery (SDC) | payer MEDICAID ==
[2016-08-03 10:58] LABS: APPEARANCE,URINE CLEAR; BILIRUBIN,URINE NEGATIVE (NEGATIVE); GLUCOSE, URINE NEGATIVE (NEGATIVE); KETONES,URINE NEGATIVE (NEGATIVE); LEUKOCYTE ESTERASE,URINE NEGATIVE (NEGATIVE); NITRITE,URINE NEGATIVE (NEGATIVE); PROTEIN,URINE NEGATIVE (NEGATIVE); URINE SPECIFIC GRAVITY 1.005; UROBILINOGEN,URINE NEGATIVE mg/dL (<2.0)
[2016-08-03 11:11] LABS: HEMATOCRIT 41.5 % (36.0-47.0); HGB HCT DIFFERENCE 0.5; MEAN CORPUSCULAR HEMOGLOBIN 28.9 pg (27.0-33.4); MEAN CORPUSCULAR HGB CONC 33.8 g/dL (32.0-36.0); MEAN CORPUSCULAR VOLUME 86 fl (80-97); RED BLOOD COUNT 4.85 10^6/uL (3.72-5.28); RED CELL DISTRIBUTION WIDTH 13.5 % (11.5-14.0); WHITE BLOOD COUNT 7.8 10^3/uL (4.0-10.5)
[~2016-08-05 05:36] MED LIST: LACTATED RINGERS 1000 ML IV PRN; LIDOCAINE 0.5% INJ-PF (5 MG/ML) 50 ML SDV SUBCUT PRN
[2016-08-05] MEDS ORDERED: MIDAZOLAM 2 MG/2 ML INJ ONE (06:28)
[2016-08-05] MEDS ORDERED: FENTANYL CITRATE INJ/PF 100 MCG/2 ML AMPUL ONE (06:28)
[2016-08-05] MEDS ORDERED: ACETAMINOPHEN 100 ML IV ONE (06:28)
[2016-08-05] MEDS ORDERED: MORPHINE SULFATE 10 MG/ML INJ ONE (06:29)
[2016-08-05] MEDS ORDERED: DEXMEDETOMIDINE INJ 80 MCG/20 ML VIAL IV ONE (06:29)
[2016-08-05] MEDS ORDERED: EPHEDRINE SULFATE INJ 50 MG/1 ML AMPULE ONE (06:29)
[2016-08-05] MEDS ORDERED: PROPOFOL INJ 200 MG/20 ML VIAL IV ONE (06:30)
[2016-08-05] MEDS ORDERED: PROMETHAZINE HCL INJ 25 MG/1 ML VIAL IV PRN ×2 (07:12)
[2016-08-05] MEDS ORDERED: DIPHENHYDRAMINE HCL 50 MG/ML VIAL IV PRN (07:12)
[2016-08-05] MEDS ORDERED: OXYCODONE-ACETAMINOPHEN 5-325 MG TABLET PO PRN ×4 (07:12→08:49)
[2016-08-05] MEDS ORDERED: FENTANYL CITRATE INJ/PF 100 MCG/2 ML AMPUL IV PRN ×3 (07:12)
[2016-08-05] MEDS ORDERED: MORPHINE SULFATE 10 MG/ML INJ IV PRN (07:12)
[2016-08-05] MEDS ORDERED: MEPERIDINE HCL/PF INJ 25 MG/1 ML DISP.SYRIN IV PRN (07:12)
[2016-08-05] MEDS ORDERED: CEFAZOLIN 1 GM/D5W RTU 1 GM/50 ML RTUPB IV ONE (07:30)
[2016-08-05] MEDS ORDERED: MORPHINE SULFATE 10 MG/ML INJ IM PRN (08:48)
[2016-08-05] MEDS ORDERED: IBUPROFEN 800 MG TABLET PO PRN (08:49)
[2016-08-05] MEDS ORDERED: ROCURONIUM BROMIDE INJ 50 MG/5 ML VIAL IV ONE (09:59)
[2016-08-05] MEDS ORDERED: GLYCOPYRROLATE INJ 0.4 MG/2 ML VIAL ONE (09:59)
[2016-08-05] MEDS ORDERED: SUCCINYLCHOLINE CHLORIDE INJ 200 MG/10 ML VIAL ONE (09:59)
[2016-08-05] MEDS ORDERED: ONDANSETRON HCL INJ/PF 4 MG/2 ML SDV ONE (09:59)
[2016-08-05] MEDS ORDERED: KETOROLAC TROMETHAMINE 60 MG/2 ML SDV ONE (09:59)
[2016-08-05] MEDS ORDERED: PHENYLEPHRINE HCL INJ/PF 10 MG/1 ML SDV ONE (09:59)
[2016-08-05] MEDS ORDERED: NEOSTIGMINE METHYLSULFATE 10 MG/10 ML VIAL ONE (09:59)
[2016-08-05] MEDS ORDERED: LIDOCAINE 2% INJ-PF (20 MG/ML) 10 ML AMPUL ONE (09:59)
[2016-08-05] MEDS ORDERED: DEXAMETHASONE SOD PHOSPHATE INJ 4 MG/1 ML VIAL ONE (09:59)
[2016-08-05 11:21] VITALS: BP 105/60
--- NOTE | 2016-09-22 09:47 | OPERATIVE REPORT E ---
Operative Report NAME: CHAR SEWELL : 1990 AGE: 26Y DATE OF SURGERY: 08/05/2016 ROOM: PREOPERATIVE DIAGNOSIS: Patient desiring sterilization. POSTOPERATIVE DIAGNOSIS: Patient desiring sterilization. PROCEDURE: Laparoscopic bilateral tubal ligation using fulguration. SURGEON: Sameer Barrera D.O. TELEPHONE APPOINTMENT CLERK: None. ANESTHESIA: General endotracheal anesthesia. COMPLICATIONS: None. PATHOLOGY: None. ESTIMATED BLOOD LOSS: Less than 10 mL. FINDINGS: Normal pelvic anatomy. PROCEDURE: Patient was taken to the operating room where her general endotracheal anesthesia was administered. Once it was found to be adequate, she was placed in the dorsal lithotomy position with Isaac stirrups on the operating room table. An open-sided speculum was then placed inside the patient's vagina. The cervix was easily visualized and grasped on the anterior lip with a single-tooth tenaculum. An [place] uterine manipulator was placed inside the uterus without difficulty. The speculum was then removed from the patient's vagina and the surgeon then changed gloves. A 10 mm incision was made at the base of the patient's umbilicus where a 10 mm direct Optiview scope was passed through this incision in the peritoneal cavity. Once inside the peritoneal cavity, CO2 gas was turned on and opening pressure was less than 5. The patient's abdomen was then allowed to fill with CO2 gas. The survey revealed normal pelvic anatomy. Using the Kleppinger device, approximately a 3 cm segment of each fallopian tube was fulgurated without difficulty with a good hemostasis. Following this, all instruments, ports, and gas were removed from the patient's abdomen. The 10 mm fascial defect was closed using 0 Vicryl in a [id number] suture. The skin was then closed using 4-0 Vicryl in a subcutaneous fashion. All other instruments were then removed from the patient's vagina and at this point in time the procedure was terminated. All sponge, lap, and needle counts were correct x2. Patient tolerated the procedure well. Patient was taken to the recovery room in stable condition. DICTATING PHYSICIAN: Sameer Barrera DO [id number] PHY#: [id number] ID: [id number] JOB#: [id number] ACCT: [id number] cc:Sameer Barrera D.O. >
== END 2016-08-05 09:50 | disposition home or self-care (01) ==
LOC: OROUT 05:36
PROVIDERS: ATTEND Obstetrics & Gynecology
PROC: 0U574ZZ Destruction of Bilateral Fallopian Tubes, Percutaneous Endoscopic Approach (ICD-10-PCS; principal; 2016-08-05 07:30)
DX: Z30.2 Encounter for sterilization (principal); D64.9 Anemia, unspecified; Z88.0 Allergy status to penicillin
CPT/HCPCS: 36415; 84702; 85027; 81005; 81025; 58670; J2250; J0690; J3490 ×5; J1100; J1885; J3010; J2370; J0330; J2405; J2704; J0131; 851; J2270

== ENCOUNTER 2017-09-10 20:34 | Emergency (ER) | payer MEDICAID ==
--- NOTE | 2017-09-10 21:02 | RADIOLOGY REPORT (SQ) ---
EXAM DESCRIPTION: WRIST LEFT 3 VIEWS COMPLETED DATE/TIME: 09/10/2017 8:53 pm REASON FOR STUDY: Pain s/p fall COMPARISON: None. NUMBER OF VIEWS: Three views. TECHNIQUE: AP, lateral, and oblique radiographic images acquired of the left wrist. LIMITATIONS: None. FINDINGS: MINERALIZATION: Normal. BONES: Distal radius and ulnar fractures with mild dorsal angulation and comminution, likely intra-ar ticular components of the dorsal radial fracture site. Radiocarpal relationship is maintained. Mike enital fusion of the lunate and triquetrum. SOFT TISSUES: Moderate soft tissue swelling. No foreign body. OTHER: No other significant finding. IMPRESSION: Distal radius and ulnar fractures with mild dorsal angulation and comminution, likely in tra-articular components of the dorsal radial fracture site. Radiocarpal relationship is maintained. TECHNICAL DOCUMENTATION: JOB ID: [id number] [id number] 2010 [employer]- All Rights Reserved Reading location - IP/workstation name: [employer]
[2017-09-10] MEDS ORDERED: OXYCODONE-ACETAMINOPHEN 5-325 MG TABLET PO ONE (21:07)
[2017-09-10] MEDS ORDERED: ONDANSETRON 4 MG TAB.RAPDIS PO ONE (21:07)
[2017-09-10] MEDS ORDERED: LIDOCAINE 1% INJ (10 MG/ML) 10 ML MDV INJ ONE (21:22)
[2017-09-10] MEDS ORDERED: BUPIVACAINE HCL 0.5 % INJ/PF 30 ML SDV INJ ONE (21:22)
[2017-09-10] MEDS ORDERED: HYDROCODONE/ACETAMINOPHEN 5-325 MG (6 TAB/ER DISP) PO PRN (22:30)
--- NOTE | 2017-09-10 22:40 | ER Document Report ---
ED Hand/Wrist Injury - General Chief Complaint: Wrist Injury Stated Complaint: LEFT WRIST INJURY Time Seen by Provider: 09/10/17 21:00 Mode of Arrival: Ambulatory Information source: Patient Notes: Patient is a 27 female who presents with pain to her left wrist after falling on outstretched hand. Patient reports that [place] Patient does have significant swelling and possible displacement. Patient denies any past medical history other than a hysterectomy. TRAVEL OUTSIDE OF THE [place] IN LAST 30 DAYS: No - Related Data Allergies/Adverse Reactions: amoxicillin Allergy (Severe, Verified 08/03/16 10:10) n and v Past Medical History - General Information source: Patient - Social History Smoking Status: Never Smoker Family History: Reviewed & Not Pertinent Patient has suicidal ideation: No Patient has homicidal ideation: No - Past Medical History Cardiac Medical History: Reports: Hx Hypertension - hx of-not current Denies: Hx Coronary Artery Disease, Hx Heart Attack Pulmonary Medical History: Denies: Hx Asthma, Hx Bronchitis, Hx COPD, Hx Pneumonia Neurological Medical History: Denies: Hx Cerebrovascular Accident, Hx Seizures Renal/ Medical History: Denies: Hx Peritoneal Dialysis Musculoskeltal Medical History: Denies Hx Arthritis - Immunizations Hx Diphtheria, Pertussis, Tetanus Vaccination: Yes Review of Systems - Review of Systems Constitutional: No symptoms reported EENT: No symptoms reported Cardiovascular: No symptoms reported Respiratory: No symptoms reported Gastrointestinal: No symptoms reported Genitourinary: No symptoms reported Female Genitourinary: No symptoms reported Musculoskeletal: See HPI Skin: No symptoms reported Hematologic/Lymphatic: No symptoms reported Neurological/Psychological: No symptoms reported Physical Exam - Vital signs Vitals: Temp Pulse Resp BP Pulse Ox 98.4 F 93 18 115/67 100 09/10/17 21:00 09/10/17 21:00 09/10/17 21:00 09/10/17 21:00 09/10/17 21:00 - Notes Notes: PHYSICAL EXAMINATION: GENERAL: Well-appearing, well-nourished and in no acute distress. HEAD: Atraumatic, normocephalic. EYES: Pupils equal round and reactive to light, extraocular movements intact, conjunctiva are normal. ENT: Nares patent, oropharynx clear without exudates. Moist mucous membranes. NECK: Normal range of motion, supple without lymphadenopathy LUNGS: Breath sounds clear to auscultation bilaterally and equal. No wheezes rales or rhonchi. HEART: Regular rate and rhythm without murmurs ABDOMEN: Soft, nontender, nondistended abdomen. No guarding, no rebound. No masses appreciated. Female : deferred Musculoskeletal: Significant swelling noted to left wrist near the distal radius and ulna. Refill less than 3 seconds. Radial and ulnar pulses are present and bounding. Normal sensation and normal movement distal to injury. NEUROLOGICAL: Cranial nerves grossly intact. Normal speech, normal gait. Normal sensory, motor exams PSYCH: Normal mood, normal affect. SKIN: Warm, Dry, normal turgor, no rashes or lesions noted. Course - Re-evaluation Re-evalutation: X-ray shows distal radius and ulna fracture to left wrist. There is some very mild displacement of the radial fracture. Hematoma block was performed under the supervision of Chaka FLOWERS and patient tolerated well with significant pain reduction. Finger traps used to aid in reduction during splint placement. Patient maintained adequate neurovascular status post reduction. Radial pulse bounding, adequate sensation and movement. Patient is going to have close follow-up with orthopedics. Patient given strict ED return precautions. - Vital Signs Vital signs: Temp Pulse Resp BP Pulse Ox 98.4 F 99 18 111/72 96 09/10/17 21:00 09/10/17 22:57 09/10/17 22:57 09/10/17 22:57 09/10/17 22:57 Procedures - Immobilization Left Wrist Pre-Proc Neuro Vasc Exam: Normal Immobilizer type: Sugar tong Performed by: PCT Post-Proc Neuro Vasc Exam: Normal Alignment checked and good: Yes - Joint Reduction/Fracture Care Left Wrist Conscious sedation: No Pre-procedure NV exam: Yes Fracture: Closed Manipulation comment: used with finger traps Post-reduction x-ray: Joint reduced Reduction attempts: 1 Complications: No Discharge - Discharge Clinical Impression: Fracture of ulna with radius, left, closed Qualifiers: Encounter type: initial encounter Qualified Code(s): S52.92XA - Unspecified fracture of left forearm, initial encounter for closed fracture Condition: Stable Disposition: HOME, SELF-CARE Instructions: Fractured Radius and Ulna ([facility]) Additional Instructions: Fractured Radius and Ulna Both bones of the forearm, the radius and the ulna, are fractured. This type of fracture is typically caused by falling onto the outstretched hand. The fractures are not serious, however, and should heal well with adequate protection. A cast or splint is used to protect the fractures. For the first few days after the injury, the arm should be elevated and ice packed. Most often , a splint is used first, with a cast later on. Healing takes from four to eight weeks, depending on the age of the patient and the seriousness of the broken bones. Your doctor has explained the treatment plan. It's important that you follow up as instructed to prevent complications. Call the doctor or return at once if severe pain or swelling occur, or if the hand becomes numb, swollen, or discolored. Please call orthopaedics on Tuesday for an appointment. Prescriptions: Morphine Sulfate [Morphine Ir 15 Mg Tablet] 15 mg PO Q4H PRN #12 tablet PRN Reason: Referrals: AIDA RODRIGUEZ MD [ACTIVE STAFF] - Follow up as needed ROWENA KNOX MD [ASSOCIATE] - Follow up as needed
[2017-09-10 22:59] VITALS: BP 111/72
--- NOTE | 2017-09-11 00:13 | RADIOLOGY REPORT (SQ) ---
EXAM DESCRIPTION: WRIST LEFT 3 VIEWS CLINICAL HISTORY: 27 years, Female, post reduction COMPARISON: None. NUMBER OF VIEWS: 3 LIMITATIONS: None. FINDINGS: Previous described fracture sites of the distal left forearm with interval casting and no significant change in alignment. IMPRESSION: Fracture follow-up.
== END 2017-09-10 23:00 | disposition home or self-care (01) ==
LOC: ER 20:34
DX: S52.502A Unspecified fracture of the lower end of left radius, initial encounter for closed fracture (principal); S52.602A Unspecified fracture of lower end of left ulna, initial encounter for closed fracture; W19.XXXA Unspecified fall, initial encounter; Y93.54 Activity, bowling; Y92.39 Other specified sports and athletic area as the place of occurrence of the external cause; Z88.0 Allergy status to penicillin
CPT/HCPCS: 99283; 73110; 25605; S0119; J3490